=== PATIENT | female | born 1945 | race Caucasian/White ===

== ENCOUNTER → 2016-09-13 | Outpatient (CLI) | payer MEDICARE, BC | LOC: WI 10:10 | PROVIDERS: ATTEND Surgery | DX: Z12.31 Encounter for screening mammogram for malignant neoplasm of breast (principal); M81.8 Other osteoporosis without current pathological fracture | CPT/HCPCS: 77063; 77080; G0202; 77067 ==

== ENCOUNTER → 2017-04-27 | Outpatient (CLI) | payer MEDICARE, BC ==
[~2017-04-27] MED LIST: REGADENOSON INJ 0.4 MG/5 ML DISP.SYRIN IV ONE
--- NOTE | 2017-04-28 18:03 | DRAGON STRESS TEST REPORT ---
Intravenous Lexiscan Cardiolite stress test using single photon emmision computerized tomography. Date of procedure: 04/27/2017. Ordering Provider: Dr. Oleg Todd. Patient's status: Out Patient. Indication: Dyspnea. Coronary risk factors: Age, hypertension, dyslipidemia, and family history of coronary artery disease. Resting EKG: Sinus Rhythm. Within Normal Limits. Stress EKG: There was more than [address] segment depression in the inferolateral leads consistent with Lexiscan induced myocardial ischemia. This normalized after a few minutes in recovery. The patient in no chest pain or discomfort, and there were no arrhythmias seen. . Reason for termination: Protocol. Conclusions: Ischemic EKG changes with IV Lexiscan and normal hemodynamic response to IV Lexiscan. Nuclear data: At rest the patient was given 10.31 millicuries of technetium 99m sestamibi injected intravenously. As per protocol rest non gated SPECT images were obtained. Subsequently the patient was given intravenous Lexiscan at a dose of 0.4 mg in 5 mL intravenously, followed by flush with normal saline. Subsequently the stress dose of 31.0 millicuries of technetium 99m sestamibi was injected intravenously. As per protocol stress gated images were obtained. Nuclear interpretation: Review of images showed that all segments of the myocardium had normal perfusion at rest, and normal perfusion post stress with IV Lexiscan. All segments of the myocardium had normal motion, contraction, and thickening by gated study. T. I D. ratio was normal at 0.90. Computer read rest, and stress left ventricular ejection fraction were 60 %, and 70 %, respectively. Conclusion: 1. There is no scintigraphic evidence of Lexiscan induced myocardial ischemia. 2. There is no scintigraphic evidence of myocardial infarction/scar. 3. There is Lexiscan induced EKG evidence of ischemia. Hence this puts the patient at a higher cardiac event percentage compared to persons with no Lexiscan induced EKG changes of ischemia, and a normal perfusion scan. Recommendations: 1. Correlate clinically. Would recommend close cardiology follow-up of this patient, and with the slightest suspicion would recommend cardiac catheterization to be absolutely sure that the patient does not have any segment significant coronary artery disease. 2. Aggressive risk factor modification, and treating the underlying co- morbidities. FLASH
== END ==
LOC: RAD 07:32
PROVIDERS: ATTEND Internal Medicine Cardiovascular Disease
DX: R06.02 Shortness of breath (principal); I10 Essential (primary) hypertension; E78.5 Hyperlipidemia, unspecified; Z82.49 Family history of ischemic heart disease and other diseases of the circulatory system
CPT/HCPCS: 93017; 78452; A9500; J2785; Q9969

== ENCOUNTER 2017-05-29 15:25 | Inpatient (IN) | payer MEDICARE, BC ==
--- NOTE | 2017-05-29 16:17 | ER Document Report ---
ED Extremity Problem, Upper - General Chief Complaint: Elbow Injury Stated Complaint: FALL/ELBOW INJURY/LACERATION Time Seen by Provider: 05/29/17 16:03 Mode of Arrival: Ambulatory Information source: Patient Notes: 72-year-old female presents to ED for complaint of injury to her right elbow and shoulder. She states she fell before arrival. She states she tripped over the asphalt. She states she always bleeds bad when she falls cuts her self. She has a very large hematoma to her right elbow pain with range of motion to her right shoulder. She does have a history of a reverse shoulder replacement on the right also rotator cuff surgery on the right and left. TRAVEL OUTSIDE OF THE [place] IN LAST 30 DAYS: No - HPI Patient complains to provider of: Injury, Pain, Swelling, Right, Elbow, Shoulder Onset: Just prior to arrival Recent injury: Yes Where: Outdoors Quality of pain: Sharp, Throbbing Severity of pain: Moderate Pain Level: 4 Context: Fall - Related Data Allergies/Adverse Reactions: Iodinated Contrast- Oral and IV Dye Allergy (Mild, Verified 05/29/17 15:28) Hives acetaminophen [From Percocet] Allergy (Verified 05/29/17 15:28) celecoxib [From Celebrex] Allergy (Verified 05/29/17 15:28) oxycodone HCl [From Percocet] Allergy (Verified 05/29/17 15:28) pravastatin [Pravastatin] Allergy (Verified 05/29/17 15:28) Past Medical History - General Information source: Patient - Social History Smoking Status: Never Smoker Cigarette use (# per day): No Chew tobacco use (# tins/day): No Smoking Education Provided: No Frequency of alcohol use: None Drug Abuse: None Lives with: Family Family History: Arthritis, CAD, COPD, CVA, Hyperlipidemia, Hypertension, Malignancy. denies: DM, Thyroid Disfunction Patient has suicidal ideation: No Patient has homicidal ideation: No - Past Medical History Cardiac Medical History: Reports: Hx Congestive Heart Failure, Hx Heart Attack - 02/22, Hx Hypertension Pulmonary Medical History: Reports: Hx Asthma - uses inhalers EENT Medical History: Reports: None Endocrine Medical History: Reports: Hx Hypothyroidism Renal/ Medical History: Reports: None Malignancy Medical History: Reports: None GI Medical History: Reports: None Musculoskeltal Medical History: Reports Hx Arthritis - hands, Reports Hx Musculoskeletal Deformity, Reports Hx Musculoskeletal Trauma Skin Medical History: Reports None Psychiatric Medical History: Reports: None Traumatic Medical History: Reports: Hx Fractures - Right elbow Infectious Medical History: Reports: None Past Surgical History: Reports: Hx Breast Surgery - Lumpectomy, Hx Genitourinary Surgery - Prolapsed bladder repair with lysis of adhesions in the pelvis at [place]., Hx Hysterectomy, Hx Orthopedic Surgery - Bilateral shoulder rotator cuff surgery, righ shoulder replacement surgery. - Immunizations Immunizations up to date: Yes Hx Diphtheria, Pertussis, Tetanus Vaccination: Yes - 05/29/17 Hx Pneumococcal Vaccination: 02/13/11 Review of Systems - Review of Systems Constitutional: No symptoms reported EENT: No symptoms reported Cardiovascular: No symptoms reported Respiratory: No symptoms reported Gastrointestinal: No symptoms reported Genitourinary: No symptoms reported Female Genitourinary: No symptoms reported Musculoskeletal: Joint pain - Right elbow and shoulder, Joint swelling - Right elbow and shoulder, Muscle pain, Muscle stiffness Skin: Other - Very large hematoma with skin tears to the right elbow Hematologic/Lymphatic: No symptoms reported Neurological/Psychological: No symptoms reported -: Yes All other systems reviewed and negative Physical Exam - Vital signs Vitals: Temp Pulse Resp BP Pulse Ox 98.4 F 62 16 139/69 H 100 05/29/17 15:30 05/29/17 15:30 05/29/17 15:30 05/29/17 15:30 05/29/17 15:30 Interpretation: Normal - General General appearance: Appears well, Alert - HEENT Head: Normocephalic, Atraumatic Eyes: Normal Pupils: PERRL - Respiratory Respiratory status: No respiratory distress Chest status: Nontender Breath sounds: Normal Chest palpation: Normal - Cardiovascular Rhythm: Regular Heart sounds: Normal auscultation Murmur: No - Abdominal Inspection: Normal Distension: No distension Bowel sounds: Normal Tenderness: Nontender Organomegaly: No organomegaly - Back Back: Normal, Nontender - Extremities General upper extremity: Normal temperature General lower extremity: Normal inspection, Nontender, Normal color, Normal ROM , Normal temperature, Normal weight bearing. No: Heron's sign Shoulder: Tender, Ecchymosis, Limited ROM - due to pain Arm: Ecchymosis Elbow: Tender, Ecchymosis, Joint effusion, Laceration, Limited ROM Forearm: Tender, Ecchymosis. No: Abrasion, Deformity, Instability, Laceration Wrist: Tender, Limited ROM - arthritis. No: Abrasion, Axial load of thumb pain , Deformity, Dislocation, Ecchymosis, Instability, Laceration, Navicular tenderness, Other Hand: Tender, No evidence of human bite, No evidence of FB. No: Abrasion, Deformity, Dislocation, Ecchymosis, Instability, Laceration, Nail injury, Swelling - Neurological Neuro grossly intact: Yes Cognition: Normal Orientation: AAOx4 Faye Coma Scale Eye Opening: Spontaneous Faye Coma Scale Verbal: Oriented Faye Coma Scale Motor: Obeys Commands Faye Coma Scale Total: 15 Speech: Normal Motor strength normal: LUE, RUE, LLE, RLE Sensory: Normal - Psychological Associated symptoms: Normal affect, Normal mood - Skin Skin Temperature: Warm Skin Moisture: Dry Skin Color: Normal Course - Re-evaluation Re-evalutation: 05/29/17 16:[address] Calles for her elbow and shoulder injury. She has an open olecranon fracture with a large hematoma to the elbow. Dr. Calles looked at the x-rays for the elbow and the shoulder. He stated the elbow wounds need to be irrigated a wet-to-dry dressing applied, she needs Ancef every 8 hours, she needs appropriate labs to for her to go to surgery in the morning, and she needs to be admitted to the hospitalist. - Vital Signs Vital signs: Temp Pulse Resp BP Pulse Ox 97.9 F 68 18 138/75 H 94 05/29/17 18:22 05/29/17 18:22 05/29/17 18:22 05/29/17 18:22 05/29/17 18:22 - Laboratory Result Diagrams: 05/29/17 17:30 05/29/17 17:30 - Diagnostic Test Radiology reviewed: Image reviewed, Reports reviewed Discharge - Discharge Clinical Impression: Open displaced fracture of olecranon process of left ulna without intraarticular extension Nondisplaced fracture of head of right radius Qualifiers: Encounter type: initial encounter Fracture type: open Open fracture type: open type I or II Qualified Code(s): S52.124B - Nondisplaced fracture of head of right radius, initial encounter for open fracture type I or II Right shoulder injury Qualifiers: Encounter type: initial encounter Qualified Code(s): S49.91XA - Unspecified injury of right shoulder and upper arm, initial encounter Disposition: ADMITTED INPATIENT Admitting Provider: Alejandra philippe
[2017-05-29] MEDS ORDERED: DIPH/PERTUSS(ACELL)/TETANUS VAC/PF 0.5 ML SYR (>=10YO) IM ONE (16:20)
--- NOTE | 2017-05-29 16:42 | RADIOLOGY REPORT (SQ) ---
EXAM DESCRIPTION: ELBOW RIGHT OVER 2 VIEWS COMPLETED DATE/TIME: 05/29/2017 4:32 pm REASON FOR STUDY: fall pain and injury COMPARISON: None. NUMBER OF VIEWS: Four views. TECHNIQUE: AP, lateral, and both oblique radiographic images acquired of the right elbow. LIMITATIONS: None. FINDINGS: MINERALIZATION: Normal. BONES: Transverse fracture through the olecranon with posterosuperior displacement of the proximal fr agment. Radial head fracture. JOINT: Joint effusion. SOFT TISSUES: There is gas in the posterior soft tissues. OTHER: No other significant finding. IMPRESSION: Displaced olecranon fracture. Nondisplaced radial head fracture. Joint effusion. Presumed posttraumatic gas in the soft tissues posteriorly. TECHNICAL DOCUMENTATION: JOB ID: [id number]- All Rights Reserved
--- NOTE | 2017-05-29 16:43 | RADIOLOGY REPORT (SQ) ---
EXAM DESCRIPTION: SHOULDER RIGHT 2 OR MORE VIEWS COMPLETED DATE/TIME: 05/29/2017 4:32 pm REASON FOR STUDY: fall pain and injury COMPARISON: None. NUMBER OF VIEWS: Three views. TECHNIQUE: Internal rotation, external rotation, and Y view images acquired of the right shoulder. LIMITATIONS: None. FINDINGS: MINERALIZATION: Normal. BONES: No acute fracture. Shoulder replacement. JOINTS: No dislocation. VISUALIZED LUNGS AND RIBS: No pneumothorax. No rib fracture. SOFT TISSUES: No radiopaque foreign body. OTHER: No other significant finding. IMPRESSION: No acute fracture. TECHNICAL DOCUMENTATION: JOB ID: [id number] [employer]- All Rights Reserved
[2017-05-29] MEDS ORDERED: CEFAZOLIN 1 GM/D5W RTU 1 GM/50 ML RTUPB IV ONE (16:55)
[2017-05-29] MEDS ORDERED: ONDANSETRON HCL INJ/PF 4 MG/2 ML SDV IV ONE (17:36)
[2017-05-29] MEDS ORDERED: MORPHINE SULFATE 10 MG/ML INJ IV ONE (17:36)
[2017-05-29] MEDS ORDERED: POTASSI CL 20 MEQ/D5LR 1L 20 MEQ/1,000 ML RTUINJ IV PRN ×2 (17:56→18:12)
[2017-05-29] MEDS ORDERED: ACETAMINOPHEN 325 MG TABLET PO PRN (17:56)
[2017-05-29 18:19] LABS: PROTHROMBIN TIME 12.8 SEC (11.4-15.4)
[2017-05-29 18:20] LABS: PARTIAL THROMBOPLASTIN TIME 29.2 SEC (23.5-35.8)
[2017-05-29 18:21] LABS: ABSOLUTE BASOPHILS # (AUTO) 0.1 10^3/uL (0.0-0.2); ABSOLUTE EOSINOPHILS # (AUTO) 0.1 10^3/uL (0.0-0.6); ABSOLUTE LYMPHOCYTES (AUTO) 2.2 10^3/uL (0.5-4.7); ABSOLUTE MONOCYTES (AUTO) 0.8 10^3/uL (0.1-1.4); ABSOLUTE NEUT (AUTO) 7.5 10^3/uL (1.7-8.2); BASOPHILS % (AUTO) 0.7 % (0-2); EOSINOPHILS % (AUTO) 1.1 % (0-6); HEMATOCRIT 43.6 % (36.0-47.0); HEMOGLOBIN 14.6 g/dL (12.0-15.5); LYMPHOCYTES % (AUTO) 20.5 % (13-45); MEAN CORPUSCULAR HEMOGLOBIN 29.5 pg (27.0-33.4); MEAN CORPUSCULAR HGB CONC 33.5 g/dL (32.0-36.0); MEAN CORPUSCULAR VOLUME 88 fl (80-97); MONOCYTES % (AUTO) 7.7 % (3-13); PLATELET COUNT 203 10^3/uL (150-450); RED BLOOD COUNT 4.95 10^6/uL (3.72-5.28); RED CELL DISTRIBUTION WIDTH 13.9 % (11.5-14.0); TOTAL CELLS COUNTED % (AUTO) 100 %; WHITE BLOOD COUNT 10.8 10^3/uL (4.0-10.5)
[2017-05-29 18:31] LABS: APPEARANCE,URINE CLEAR; BILIRUBIN,URINE NEGATIVE (NEGATIVE); COLOR,URINE STRAW; GLUCOSE, URINE NEGATIVE (NEGATIVE); KETONES,URINE NEGATIVE (NEGATIVE); LEUKOCYTE ESTERASE,URINE NEGATIVE (NEGATIVE); NITRITE,URINE NEGATIVE (NEGATIVE); PROTEIN,URINE NEGATIVE (NEGATIVE); URINE SPECIFIC GRAVITY 1.003; UROBILINOGEN,URINE NEGATIVE mg/dL (<2.0)
[2017-05-29 18:35] LABS: ALANINE AMINOTRANSFERASE 38 U/L (9-52); ALKALINE PHOSPHATASE 76 U/L (38-126); ANION GAP 10 (5-19); ASPARTATE AMINO TRANSFERASE 37 U/L (14-36); BILIRUBIN,DIRECT 0.3 mg/dL (0.0-0.4); BILIRUBIN,TOTAL 0.4 mg/dL (0.2-1.3); BLOOD UREA NITROGEN 21 mg/dL (7-20); CALCIUM 9.8 mg/dL (8.4-10.2); CARBON DIOXIDE 27 mmol/L (22-30); CHLORIDE 106 mmol/L (98-107); GLUCOSE 77 mg/dL (75-110); POTASSIUM 4.3 mmol/L (3.6-5.0); SODIUM 143.3 mmol/L (137-145); TOTAL PROTEIN 6.7 g/dL (6.3-8.2)
[2017-05-29] MEDS ORDERED: (PENDING PHARMACY ID) (Alprazolam [Alprazolam Odt] 1 TAB) PO PRN (18:37)
[2017-05-29] MEDS ORDERED: ALBUTEROL SULFATE HFA (90 MCG/PUFF) 200 PUFF/8.5 GM MDI IH PRN (18:37)
--- NOTE | 2017-05-29 18:45 | PDOC H&P ---
History of Present Illness Admission Date/PCP: 05/29/17 17:16 ELIZABET FIGUEROA MD Patient complains of: Fell and broke right elbow. History of Present Illness: GOPAL CORNELIUS is a 72 year old female presents to the emergency room complaining of following after visiting her son. Patient states that she tripped and fell on her right side. Patient states that she experiences severe pain and significant bleeding. Patient drove back to [facility] to receive medical care here at the hospital. Patient reports that she does have history of osteoporosis. Patient states that her pain is approximately 7 out of 10. Nurse practitioner was at bedside planning to give patient 1 mg of morphine. Patient denies chest pain, shortness of breath, nausea, and vomiting. Past Medical History Cardiac Medical History: Reports: Congestive Heart Failure, Myocardial Infarction - 02/22, Hyperlipidema, Hypertension Denies: Coronary Artery Disease - Cardiomyopathy Pulmonary Medical History: Reports: Asthma - uses inhalers Denies: Bronchitis, Chronic Obstructive Pulmonary Disease (COPD), Pneumonia EENT Medical History: Reports: None Neurological Medical History: Denies: Seizures Endocrine Medical History: Reports: Hypothyroidism Renal/ Medical History: Reports: None Malignancy Medical History: Reports: None GI Medical History: Reports: None Denies: Hepatitis, Hiatal Hernia Musculoskeltal Medical History: Reports: Arthritis - hands Skin Medical History: Reports: None Psychiatric Medical History: Reports: None Hematology: Denies: Anemia, Sickle Cell Disease Infectious Medical History: Reports: None Past Surgical History Past Surgical History: Reports: Hysterectomy, Orthopedic Surgery - Bilateral shoulder rotator cuff surgery, righ shoulder replacement surgery. Denies: Amputation, Mastectomy, Pacemaker Social History Lives with: Family Smoking Status: Never Smoker - Advance Directive Resuscitation Status: Full Code Family History Family History: Arthritis, CAD, COPD, CVA, Hyperlipidemia, Hypertension, Malignancy. denies: DM, Thyroid Disfunction Parental Family History Reviewed: Yes Children Family History Reviewed: Yes Sibling(s) Family History Reviewed.: Yes Medication/Allergy Home Medications: Aspirin [Ecotrin 81 mg EC Tablet] 81 mg PO DAILY 07/23/11 Levothyroxine Sodium [Synthroid 25 Mcg Tablet] 25 mcg PO DAILY 07/23/11 Multivitamin [Multivitamins] 1 each PO DAILY 07/23/11 Omeprazole [Prilosec] 20 mg PO DAILY 07/23/11 Spironolactone [Aldactone] 25 mg PO DAILY 07/23/11 Albuterol Sulfate [Proair Hfa Inhalation Aerosol 8.5 gm Mdi] 1 puff IH Q4 PRN Atorvastatin Calcium [Lipitor] 20 mg PO HSP PRN 08/19/15 Beclomethasone Dipropionate [Qvar] 1 - 2 inh IH BID PRN 08/19/15 Diltiazem HCl [Diltiazem 12Hr ER] 120 mg PO DAILY 08/19/15 Ibandronate Sodium [Boniva] 150 mg PO ASDIR PRN 08/19/15 Meclizine HCl [Antivert 25 mg Tablet] 25 mg PO DAILY PRN 08/19/15 Alprazolam [Alprazolam Odt] 1 tab PO ASDIR PRN 12/18/15 Calcium/D3/Mag Ox/Water Safety Instructor/Ramiro/Zn [Caltrate+D3 Plus Mineral Minis] 1 each PO BID 08/29 Montelukast Sodium [Singulair 10 mg Tablet] 10 mg PO QHS 12/18/15 Vitamin B Complex [Vitamin B Complex-100] 1 each PO DAILY 12/18/15 Allergies/Adverse Reactions: Iodinated Contrast- Oral and IV Dye Allergy (Mild, Verified 05/29/17 15:28) Hives acetaminophen [From Percocet] Allergy (Verified 05/29/17 15:28) celecoxib [From Celebrex] Allergy (Verified 05/29/17 15:28) oxycodone HCl [From Percocet] Allergy (Verified 05/29/17 15:28) pravastatin [Pravastatin] Allergy (Verified 05/29/17 15:28) Review of Systems Constitutional: ABSENT: chills, fever(s), headache(s), weight gain, weight loss Eyes: ABSENT: visual disturbances Ears: ABSENT: hearing changes Cardiovascular: ABSENT: chest pain, dyspnea on exertion, edema, orthropnea, palpitations Respiratory: ABSENT: cough, hemoptysis Gastrointestinal: ABSENT: abdominal pain, constipation, diarrhea, hematemesis, hematochezia, nausea, vomiting Genitourinary: ABSENT: dysuria, hematuria Musculoskeletal: PRESENT: other - Right arm pain Integumentary: PRESENT: other - Right arm wound Neurological: ABSENT: abnormal gait, abnormal speech, confusion, dizziness, focal weakness, syncope Psychiatric: ABSENT: anxiety, depression, homidical ideation, suicidal ideation Endocrine: ABSENT: cold intolerance, heat intolerance, polydipsia, polyuria Hematologic/Lymphatic: ABSENT: easy bleeding, easy bruising Physical Exam Vital Signs: Temp Pulse Resp BP Pulse Ox 98.4 F 62 16 139/69 H 100 05/29/17 15:30 05/29/17 15:30 05/29/17 15:30 05/29/17 15:30 05/29/17 15:30 General appearance: PRESENT: mild distress, thin Head exam: PRESENT: atraumatic, normocephalic Eye exam: PRESENT: conjunctiva pink, EOMI. ABSENT: scleral icterus Ear exam: PRESENT: normal external ear exam Mouth exam: PRESENT: moist, tongue midline Neck exam: ABSENT: carotid bruit, JVD, lymphadenopathy, thyromegaly Respiratory exam: PRESENT: clear to auscultation michael. ABSENT: rales, rhonchi, wheezes Cardiovascular exam: PRESENT: other - Irregular rhythm, no carotid bruits, no lower extremity edema Pulses: PRESENT: normal dorsalis pedis pul Vascular exam: PRESENT: normal capillary refill GI/Abdominal exam: PRESENT: normal bowel sounds, soft. ABSENT: distended, guarding, mass, organolmegaly, rebound, tenderness Rectal exam: PRESENT: deferred Extremities exam: PRESENT: other - Right arm with dressing in place, lower extremities full range of motion bilaterally strength 5 out of 5 in left upper extremity with 5 out of 5 strength Musculoskeletal exam: PRESENT: other - +Left upper ext 5/5, +bilateral lower ext strength 5/5 Neurological exam: PRESENT: alert, awake, oriented to person, oriented to place , oriented to time, oriented to situation, CN II-XII grossly intact. ABSENT: motor sensory deficit Psychiatric exam: PRESENT: appropriate affect, normal mood. ABSENT: homicidal ideation, suicidal ideation Skin exam: PRESENT: dry, intact, warm. ABSENT: cyanosis, rash Results Impressions: Elbow X-Ray 05/29/17 16:07 IMPRESSION: Displaced olecranon fracture. Nondisplaced radial head fracture. Joint effusion. Presumed posttraumatic gas in the soft tissues posteriorly. Shoulder X-Ray 05/29/17 16:07 IMPRESSION: No acute fracture. Assessment & Plan - Diagnosis (1) Nondisplaced fracture of head of right radius Qualifiers: Encounter type: initial encounter Fracture type: open Open fracture type : open type I or II Qualified Code(s): S52.124B - Nondisplaced fracture of head of right radius, initial encounter for open fracture type I or II Is this a current diagnosis for this admission?: Yes Plan: In setting of osteoporosis: Patient will be seen by Dr. Calles. (2) Vertigo Is this a current diagnosis for this admission?: Yes Plan: Meclizine as needed (3) GERD (gastroesophageal reflux disease) Is this a current diagnosis for this admission?: Yes Plan: We will continue omeprazole (4) Allergic rhinitis Is this a current diagnosis for this admission?: Yes Plan: We will continue Singulair (5) Hyperlipidemia Is this a current diagnosis for this admission?: Yes Plan: Continue statin (6) Asthma Is this a current diagnosis for this admission?: Yes Plan: We will continue Qvar and write for as needed breathing treatments. (7) Osteoporosis Is this a current diagnosis for this admission?: Yes Plan: She reports that she does not take medicine for osteoporosis. Will need to verify this with pharmacy. (8) Right shoulder injury Qualifiers: Encounter type: initial encounter Qualified Code(s): S49.91XA - Unspecified injury of right shoulder and upper arm, initial encounter Is this a current diagnosis for this admission?: Yes Plan: Secondary to fall: Supportive care. Morphine has been written for 1 mg IV every 4 hours as needed for pain. (9) Fall Is this a current diagnosis for this admission?: Yes Plan: We will have patient work with PT OT (10) Abnormal stress test Is this a current diagnosis for this admission?: Yes Plan: Patient had a nuclear medicine stress test April 2017 which demonstrated induced ischemia. Will have cardiology follow patient. Will check troponins. (11) DVT prophylaxis Is this a current diagnosis for this admission?: Yes Plan: SCDs - Time Time Spent: 30 to 50 Minutes - We will have cardiology follow patient. She had a stress test April 2017 that demonstrated induced ischemia. Cardiology recommends medical management. The patient required surgery will have cardiology follow patient throughout hospital stay in case patient develops any issues.
--- NOTE | 2017-05-29 19:40 | PDOC CONSULTATION ---
Consultation Consult Date: 05/29/17 Attending physician:: MIGUEL LOVETT Consult reason:: Preop cardiovascular evaluation History of Present Illness Admission Date/PCP: 05/29/17 17:16 ELIZABET FIGUEROA MD Patient complains of: Elbow fracture History of Present Illness: GOPAL CORNELIUS is a 72 year old female presents to the emergency room complaining of following after visiting her son. Patient states that she tripped and fell on her right side. Patient states that she experiences severe pain and significant bleeding. Patient drove back to [facility] to receive medical care here at the hospital. Patient reports that she does have history of osteoporosis. Patient states that her pain is approximately 7 out of 10. Nurse practitioner was at bedside planning to give patient 1 mg of morphine. Patient denies chest pain, shortness of breath, nausea, and vomiting. This history was reviewed and confirmed. Patient claimed that she had recent cardiac evaluations by Dr. Todd. A follow-up is pending with him but apparently no significant findings are noted otherwise they claim that Dr. Todd would have called them. Patient actually denied any history of CHF or prior myocardial infarction although it was mentioned in the past medical history. I did find a recent stress test report which showed no perfusion abnormality but some EKG changes with Lexiscan. Patient however doing clinically well. Patient claims the only problem she has been having is with some ectopics and irregular heartbeats. Past Medical History Cardiac Medical History: Reports: Congestive Heart Failure, Myocardial Infarction - 02/22, Hyperlipidema, Hypertension Denies: Coronary Artery Disease - Cardiomyopathy Pulmonary Medical History: Reports: Asthma - uses inhalers Denies: Bronchitis, Chronic Obstructive Pulmonary Disease (COPD), Pneumonia EENT Medical History: Reports: None Neurological Medical History: Denies: Seizures Endocrine Medical History: Reports: Hypothyroidism Renal/ Medical History: Reports: None Malignancy Medical History: Reports: None GI Medical History: Reports: None Denies: Hepatitis, Hiatal Hernia Musculoskeltal Medical History: Reports: Arthritis - hands Skin Medical History: Reports: None Psychiatric Medical History: Reports: None Hematology: Denies: Anemia, Sickle Cell Disease Infectious Medical History: Reports: None Past Surgical History Past Surgical History: Reports: Hysterectomy, Orthopedic Surgery - Bilateral shoulder rotator cuff surgery, righ shoulder replacement surgery. Denies: Amputation, Mastectomy, Pacemaker Social History Information Source: Patient Lives with: Family Smoking Status: Never Smoker - Advance Directive Resuscitation Status: Full Code Family History Family History: Arthritis, CAD, COPD, CVA, Hyperlipidemia, Hypertension, Malignancy. denies: DM, Thyroid Disfunction Parental Family History Reviewed: Yes Children Family History Reviewed: Yes Sibling(s) Family History Reviewed.: Yes Medication/Allergy Home Medications: Atorvastatin Calcium [Lipitor 20 mg Tablet] 20 mg PO QHS 05/30/17 Diltiazem HCl [Diltiazem ER] 240 mg PO DAILY 05/30/17 Levothyroxine Sodium [Synthroid 0.025 mg Tablet] 25 mcg PO Q6AM 05/30/17 Meloxicam [Mobic] 15 mg PO DAILY 05/30/17 Montelukast Sodium [Singulair 10 mg Tablet] 10 mg PO QHS 05/30/17 Multivitamin [Tab-A-Werner (Multiple Vitamin) Tablet] 1 tab PO DAILY 05/30/17 Qvar 40 Mcg Inhaler 1 puff IH Q12 05/30/17 Spironolactone [Aldactone 25 mg Tablet] 12.5 mg PO DAILY 05/30/17 Allergies/Adverse Reactions: Iodinated Contrast- Oral and IV Dye Allergy (Mild, Verified 05/29/17 15:28) Hives acetaminophen [From Percocet] Allergy (Verified 05/29/17 15:28) celecoxib [From Celebrex] Allergy (Verified 05/29/17 15:28) oxycodone HCl [From Percocet] Allergy (Verified 05/29/17 15:28) pravastatin [Pravastatin] Allergy (Verified 05/29/17 15:28) Review of Systems All systems: reviewed and no additional remarkable complaints except as stated Review of Systems: Please see history of present illness and past medical history as wall. Constitutional: No fever or chills reported. Head : No recent chronic headaches, recent head injury. Eyes: No recent eye pain, diplopia, redness, discharge, acute visual changes. Ears: No recent chronic ear pain, acute hearing loss, ear discharge. Oral cavity: No recent ulcerations, bleeding, oral cavity discomfort. Neck: No recent acute neck pain reported. Hematologic: No recent easy bruising or bleeding or hematologic malignancy reported. Lymphatic: No recent lymphatic malignancy, chronic lymphadenopathy reported yet Cardiovascular system review: See history of present illness. Respiratory system review: No recent chronic cough, hemoptysis, blood clots in the lungs reported. Mild Shortness of breath on exertion. No syncope reported Gastrointestinal system review: Negative for any recent acute or chronic abdominal pain, hematemesis, melena, recent change in bowel habits. Genitourinary system review: No recent acute or chronic hematuria, flank pain, UTI etc. reported. Skin system review: Negative for any recent abnormal bruising, no rash, no pruritus reported. Neurologic: No prior history of strokes, mini strokes, seizure disorder. Psychologic: No history of major psychosis or major depression reported. Musculoskeletal: Minor aches and pains reported. No acute joint swelling reported. Elbow fracture noted Endocrine: No recent polyuria, polydipsia, recent heat or cold intolerance. Physical Exam Vital Signs: Temp Pulse Resp BP Pulse Ox 97.9 F 68 18 138/75 H 94 05/29/17 18:22 18 18:22 05/29/17 18:22 05/29/17 18:22 05/29/17 18:22 Exam: GENERAL: well-nourished and in no acute distress. Alert and oriented x3. Patient is thin built and small HEAD: Atraumatic, normocephalic. EYES: Pupils equal round and reactive to light, extraocular movements intact, sclera anicteric, conjunctiva are normal. ENT: TMs normal, nares patent, oropharynx clear without exudates. Moist mucous membranes. No oral ulcerations or bleeding gums noted NECK: supple without lymphadenopathy. Trachea is central. No cervical or axillary lymphadenopathy noted. Carotids are 2+, JVD WNL LUNGS: Respiration seems nonlabored, no significant accessory muscle action noted. Breath sounds clear to auscultation bilaterally and equal noted. No wheezes rales or rhonchi noted. No significant dullness noted on percussion. CHEST: Palpation of the chest wall shows no significant chest wall tenderness. No other significant abnormalities noted. HEART: [place] [employer], No PSH, 1/6 KEV aortic area, 1/6 reyes systolic murmur mitral area, no rubs, no gallops. ABDOMEN: Soft, no significant tenderness appreciated, normoactive bowel sounds. No guarding, no rebound. No rigidity noted . No masses appreciated. EXTREMITIES: Pedal pulses are 1-2+, no calf tenderness noted. No clubbing or cyanosis. Negative pedal edema noted NEUROLOGICAL: Focused neurological exam showed no significant neurologic deficit. Normal speech, no focal weakness appreciated. PSYCH: Normal mood, normal affect. Judgment and insight within normal limits. SKIN: No significant ecchymosis, rash, ulcerations or signs of pruritus noted. Right elbow fracture findings noted. MUSCULOSKELETAL EXAM: No significant joint swelling noted. Results Laboratory Results: 05/29/17 17:30 05/29/17 17:30 05/29/17 05/29/17 05/29/17 17:30 17:30 18:10 WBC 10.8 H RBC 4.95 Hgb 14.6 Hct 43.6 MCV 88 MCH 29.5 MCHC 33.5 RDW 13.9 Plt Count 203 Seg Neutrophils % 70.0 Lymphocytes % 20.5 Monocytes % 7.7 Eosinophils % 1.1 Basophils % 0.7 Absolute Neutrophils 7.5 Absolute Lymphocytes 2.2 Absolute Monocytes 0.8 Absolute Eosinophils 0.1 Absolute Basophils 0.1 Sodium 143.3 Potassium 4.3 Chloride 106 Carbon Dioxide 27 Anion Gap 10 BUN 21 H Creatinine 0.71 Est GFR ( Amer) > 60 Est GFR (Non-Af Amer) > 60 Glucose 77 Calcium 9.8 Total Bilirubin 0.4 AST 37 H ALT 38 Alkaline Phosphatase 76 Total Protein 6.7 Albumin 4.0 Urine Color STRAW Urine Appearance CLEAR Urine pH 8.0 Ur Specific [place] 1.003 Urine Protein NEGATIVE Urine Glucose (UA) NEGATIVE Urine Ketones NEGATIVE Urine Blood NEGATIVE Urine Nitrite NEGATIVE Ur Leukocyte Esterase NEGATIVE Urine WBC (Auto) 1 Urine RBC (Auto) 0 EKG Comments: Shows sinus rhythm, no acute ST-T wave changes noted. Minor nonspecific ST segment changes noted laterally but relatively unchanged from before. Impressions: Elbow X-Ray 05/29/17 16:07 IMPRESSION: Displaced olecranon fracture. Nondisplaced radial head fracture. Joint effusion. Presumed posttraumatic gas in the soft tissues posteriorly. Shoulder X-Ray 05/29/17 16:07 IMPRESSION: No acute fracture. Assessment & Plan - Diagnosis (1) Preoperative cardiovascular examination Is this a current diagnosis for this admission?: Yes (2) Asthma Qualifiers: Asthma severity: unspecified severity Asthma persistence: unspecified Is this a current diagnosis for this admission?: Yes (3) Fall Qualifiers: Encounter type: initial encounter Qualified Code(s): W19.XXXA - Unspecified fall, initial encounter Is this a current diagnosis for this admission?: Yes (4) GERD (gastroesophageal reflux disease) Is this a current diagnosis for this admission?: Yes (5) Hyperlipidemia Is this a current diagnosis for this admission?: Yes (6) Ventricular ectopic beats Is this a current diagnosis for this admission?: Yes - Notes Notes: Patient presents with a fall resulting in right elbow fracture. Patient currently asymptomatic from any cardiac related symptoms such as chest pain or shortness of breath. Patient is in sinus rhythm. Recent stress test showed normal perfusion but minor some EKG changes. Since orthopedic surgery is considered minor surgery, patient is cleared for surgery. Will place patient on small dose of beta-magnolia in view of history of ectopics. Continue with statins as statins has been shown to prevent perioperative myocardial infarction rate. - Time Time Spent: 30 to 50 Minutes - CODE STATUS was discussed, patient remains full code. Surrogate decision-maker patient's . Multiple medical problems were addressed. More than 50% of the time spent coordinating care, discussing management plans with involved caregivers. Management plans discussed with involved personnels. Medical decision making was of moderate to high complexity , patient's has multiple comorbidities. Medications reviewed and adjusted accordingly: Yes
--- NOTE | 2017-05-29 19:53 | RADIOLOGY REPORT (SQ) ---
EXAM DESCRIPTION: CHEST PA/LAT COMPLETED DATE/TIME: 05/29/2017 7:40 pm REASON FOR STUDY: pre op COMPARISON: 10/18/2015. EXAM PARAMETERS: NUMBER OF VIEWS: two views TECHNIQUE: Digital Frontal and Lateral radiographic views of the chest acquired. RADIATION DOSE: NA LIMITATIONS: none FINDINGS: LUNGS AND PLEURA: No opacities, masses or pneumothorax. No pleural effusion. MEDIASTINUM AND HILAR STRUCTURES: No masses or contour abnormalities. HEART AND VASCULAR STRUCTURES: Heart normal size. No evidence for failure. BONES: No acute findings. HARDWARE: Right shoulder prosthesis. OTHER: No other significant finding. IMPRESSION: NO SIGNIFICANT RADIOGRAPHIC FINDING IN THE CHEST. TECHNICAL DOCUMENTATION: JOB ID: [id number] [employer]- All Rights Reserved
--- NOTE | 2017-05-29 22:10 | EKG REPORT ---
SEVERITY:- OTHERWISE NORMAL ECG - SINUS RHYTHM ATRIAL PREMATURE COMPLEX MINIMAL ST DEPRESSION, LATERAL LEADS : Confirmed by: Mendez Oconnell MD 29-May-2017 22:10:14
[2017-05-29] MEDS ORDERED: POTASSI CL 20 MEQ/D5-1/2NS 1L 1,000 ML IV PRN (22:20)
[2017-05-29] MEDS: MORPHINE SULFATE 10 MG/ML INJ IV PRN (22:21)
[2017-05-29] MEDS: MONTELUKAST SODIUM 10 MG TABLET PO SCH (22:27)
[2017-05-30] MEDS: DEXTROSE 5%-1/2 NORMAL SALINE 1,000 ML IV PRN ×2 (00:36→20:54)
[2017-05-30] MEDS: CEFAZOLIN 2 GM/D5W RTU 2 GM/50 ML RTUPB IV SCH ×4 (00:41→20:28)
[2017-05-30] MEDS: LANSOPRAZOLE 15 MG TAB.RAP.DR PO SCH (05:50)
[2017-05-30] MEDS: LEVOTHYROXINE SODIUM 0.025 MG TABLET PO SCH (05:51)
[2017-05-30 07:34] LABS: ABSOLUTE BASOPHILS # (AUTO) 0.1 10^3/uL (0.0-0.2); ABSOLUTE EOSINOPHILS # (AUTO) 0.1 10^3/uL (0.0-0.6); ABSOLUTE LYMPHOCYTES (AUTO) 2.1 10^3/uL (0.5-4.7); ABSOLUTE NEUT (AUTO) 6.1 10^3/uL (1.7-8.2); BASOPHILS % (AUTO) 0.7 % (0-2); EOSINOPHILS % (AUTO) 1.1 % (0-6); HEMATOCRIT 41.5 % (36.0-47.0); HEMOGLOBIN 13.8 g/dL (12.0-15.5); LYMPHOCYTES % (AUTO) 22.7 % (13-45); MEAN CORPUSCULAR HGB CONC 33.2 g/dL (32.0-36.0); MEAN CORPUSCULAR VOLUME 87 fl (80-97); MONOCYTES % (AUTO) 10.6 % (3-13); PLATELET COUNT 158 10^3/uL (150-450); RED BLOOD COUNT 4.75 10^6/uL (3.72-5.28); RED CELL DISTRIBUTION WIDTH 13.8 % (11.5-14.0); SEGMENTED NEUTROPHILS % (AUTO) 64.9 % (42-78); TOTAL CELLS COUNTED % (AUTO) 100 %; WHITE BLOOD COUNT 9.3 10^3/uL (4.0-10.5)
[2017-05-30 09:00] LABS: ALANINE AMINOTRANSFERASE 35 U/L (9-52); ALBUMIN 3.6 g/dL (3.5-5.0); ALKALINE PHOSPHATASE 68 U/L (38-126); ANION GAP 6 (5-19); ASPARTATE AMINO TRANSFERASE 38 U/L (14-36); BILIRUBIN,DIRECT 0.2 mg/dL (0.0-0.4); BILIRUBIN,TOTAL 0.5 mg/dL (0.2-1.3); BLOOD UREA NITROGEN 16 mg/dL (7-20); CALCIUM 9.4 mg/dL (8.4-10.2); CARBON DIOXIDE 30 mmol/L (22-30); CHLORIDE 106 mmol/L (98-107); GLUCOSE 80 mg/dL (75-110); POTASSIUM 4.7 mmol/L (3.6-5.0); SODIUM 142.4 mmol/L (137-145); TOTAL PROTEIN 6.2 g/dL (6.3-8.2)
[2017-05-30] MEDS ORDERED: DILTIAZEM HCL 120 MG CAP.SR.24H PO SCH (10:00)
[2017-05-30] MEDS ORDERED: [UNRECOGNIZED DRUG - OTHER] PO SCH (10:00)
[2017-05-30] MEDS ORDERED: BECLOMETHASONE DIPROPIONATE IH SCH (10:00)
[2017-05-30] MEDS ORDERED: PHENYLEPHRINE HCL INJ/PF 10 MG/1 ML SDV ONE (10:34)
[2017-05-30] MEDS ORDERED: DEXAMETHASONE SOD PHOSPHATE INJ 4 MG/1 ML VIAL ONE (10:34)
[2017-05-30] MEDS ORDERED: SUCCINYLCHOLINE CHLORIDE INJ 200 MG/10 ML VIAL ONE (10:34)
[2017-05-30] MEDS ORDERED: ONDANSETRON HCL INJ/PF 4 MG/2 ML SDV ONE (10:34)
[2017-05-30] MEDS: MULTIVIT-STRESS FORMULA/ZINC TABLET PO SCH (10:55)
[2017-05-30] MEDS: MULTIVITAMIN TABLET PO SCH (10:55)
[2017-05-30] MEDS: SPIRONOLACTONE 25 MG TABLET PO SCH (10:56)
[2017-05-30] MEDS: DOCUSATE SODIUM 100 MG CAPSULE PO SCH (10:56)
[2017-05-30] MEDS: MORPHINE SULFATE 10 MG/ML INJ IV PRN ×2 (11:13→20:53)
--- NOTE | 2017-05-30 11:50 | PDOC PROGRESS REPORT ---
Subjective Progress Note for:: 05/30/17 Subjective:: Pt states that her pain is under control. Pt states that she was able to rest overnight. Pt states that she is scheduled for surgery this afternoon. Pt states that she has problems with constipation and uses miralax as needed. Pt states that her pain is controlled today 07/23. Reason For Visit: RIGHT ELBOW FRACTURE Physical Exam Vital Signs: Temp Pulse Resp BP Pulse Ox 98.1 F 55 L 16 123/65 100 05/30/17 08:01 05/30/17 08:01 05/30/17 08:01 05/30/17 08:01 05/30/17 08:31 Intake & Output 05/29/17 05/30/17 05/31/17 06:59 06:59 06:59 Intake Total 560 Balance 560 Weight 52.2 kg General appearance: PRESENT: no acute distress, thin Head exam: PRESENT: atraumatic, normocephalic Eye exam: PRESENT: conjunctiva pink, EOMI. ABSENT: scleral icterus Ear exam: PRESENT: normal external ear exam Mouth exam: PRESENT: moist, tongue midline Neck exam: ABSENT: carotid bruit, JVD, lymphadenopathy, thyromegaly Respiratory exam: PRESENT: clear to auscultation michael. ABSENT: rales, rhonchi, wheezes Cardiovascular exam: PRESENT: irregular rhythm Pulses: PRESENT: normal dorsalis pedis pul Vascular exam: PRESENT: normal capillary refill GI/Abdominal exam: PRESENT: normal bowel sounds, soft. ABSENT: distended, guarding, mass, organolmegaly, rebound, tenderness Rectal exam: PRESENT: deferred Extremities exam: PRESENT: full ROM. ABSENT: calf tenderness, clubbing, pedal edema Musculoskeletal exam: PRESENT: other - Right elbow with sling and dressing in place. FROM of Left upper, Left lower, and Right lower ext. Neurological exam: PRESENT: alert, awake, oriented to person, oriented to place , oriented to time, oriented to situation, CN II-XII grossly intact. ABSENT: motor sensory deficit Psychiatric exam: PRESENT: appropriate affect, normal mood. ABSENT: homicidal ideation, suicidal ideation Skin exam: PRESENT: dry, intact, warm. ABSENT: cyanosis, rash Results Laboratory Results: 05/30/17 06:46 05/30/17 08:22 05/29/17 05/29/17 05/29/17 17:30 17:30 18:10 WBC 10.8 H RBC 4.95 Hgb 14.6 Hct 43.6 MCV 88 MCH 29.5 MCHC 33.5 RDW 13.9 Plt Count 203 Seg Neutrophils % 70.0 Lymphocytes % 20.5 Monocytes % 7.7 Eosinophils % 1.1 Basophils % 0.7 Absolute Neutrophils 7.5 Absolute Lymphocytes 2.2 Absolute Monocytes 0.8 Absolute Eosinophils 0.1 Absolute Basophils 0.1 Sodium 143.3 Potassium 4.3 Chloride 106 Carbon Dioxide 27 Anion Gap 10 BUN 21 H Creatinine 0.71 Est GFR ( Amer) > 60 Est GFR (Non-Af Amer) > 60 Glucose 77 Calcium 9.8 Total Bilirubin 0.4 AST 37 H ALT 38 Alkaline Phosphatase 76 Total Protein 6.7 Albumin 4.0 Urine Color STRAW Urine Appearance CLEAR Urine pH 8.0 Ur Specific [place] 1.003 Urine Protein NEGATIVE Urine Glucose (UA) NEGATIVE Urine Ketones NEGATIVE Urine Blood NEGATIVE Urine Nitrite NEGATIVE Ur Leukocyte Esterase NEGATIVE Urine WBC (Auto) 1 Urine RBC (Auto) 0 05/30/17 05/30/17 05/30/17 06:46 06:46 08:22 WBC 9.3 RBC 4.75 Hgb 13.8 Hct 41.5 MCV 87 MCH 29.0 MCHC 33.2 RDW 13.8 Plt Count 158 Seg Neutrophils % 64.9 Lymphocytes % 22.7 Monocytes % 10.6 Eosinophils % 1.1 Basophils % 0.7 Absolute Neutrophils 6.1 Absolute Lymphocytes 2.1 Absolute Monocytes 1.0 Absolute Eosinophils 0.1 Absolute Basophils 0.1 Sodium Cancelled 142.4 Potassium Cancelled 4.7 Chloride Cancelled 106 Carbon Dioxide Cancelled 30 Anion Gap Cancelled 6 BUN Cancelled 16 Creatinine Cancelled 0.74 Est GFR ( Amer) Cancelled > 60 Est GFR (Non-Af Amer) Cancelled > 60 Glucose Cancelled 80 Calcium Cancelled 9.4 Total Bilirubin Cancelled 0.5 AST Cancelled 38 H ALT Cancelled 35 Alkaline Phosphatase Cancelled 68 Total Protein Cancelled 6.2 L Albumin Cancelled 3.6 Urine Color Urine Appearance Urine pH Ur Specific [place] Urine Protein Urine Glucose (UA) Urine Ketones Urine Blood Urine Nitrite Ur Leukocyte Esterase Urine WBC (Auto) Urine RBC (Auto) Impressions: Elbow X-Ray 05/29/17 16:07 IMPRESSION: Displaced olecranon fracture. Nondisplaced radial head fracture. Joint effusion. Presumed posttraumatic gas in the soft tissues posteriorly. Shoulder X-Ray 05/29/17 16:07 IMPRESSION: No acute fracture. Chest X-Ray 05/29/17 16:55 IMPRESSION: NO SIGNIFICANT RADIOGRAPHIC FINDING IN THE CHEST. Assessment & Plan - Diagnosis (1) Nondisplaced fracture of head of right radius Qualifiers: Encounter type: initial encounter Fracture type: open Open fracture type : open type I or II Qualified Code(s): S52.124B - Nondisplaced fracture of head of right radius, initial encounter for open fracture type I or II Is this a current diagnosis for this admission?: Yes Plan: In setting of osteoporosis: Pt is currently scheduled for surgery later today. (2) Constipation Is this a current diagnosis for this admission?: Yes Plan: Miralax PRN (3) Vertigo Is this a current diagnosis for this admission?: Yes Plan: Meclizine as needed (4) GERD (gastroesophageal reflux disease) Is this a current diagnosis for this admission?: Yes Plan: We will continue omeprazole (5) Allergic rhinitis Is this a current diagnosis for this admission?: Yes Plan: We will continue Singulair (6) Hyperlipidemia Is this a current diagnosis for this admission?: Yes Plan: Continue statin (7) Asthma Qualifiers: Asthma severity: unspecified severity Asthma persistence: unspecified Is this a current diagnosis for this admission?: Yes Plan: We will continue Qvar and DuoNebs PRN (8) Osteoporosis Is this a current diagnosis for this admission?: Yes Plan: She reports that she does not take medicine for osteoporosis. Will need to verify this with pharmacy. (9) Right shoulder injury Qualifiers: Encounter type: initial encounter Qualified Code(s): S49.91XA - Unspecified injury of right shoulder and upper arm, initial encounter Is this a current diagnosis for this admission?: Yes Plan: Secondary to fall: Supportive care. Morphine has been written for 1 mg IV every 4 hours as needed for pain. (10) Fall Qualifiers: Encounter type: initial encounter Qualified Code(s): W19.XXXA - Unspecified fall, initial encounter Is this a current diagnosis for this admission?: Yes Plan: We will have patient work with PT OT (11) Abnormal stress test Is this a current diagnosis for this admission?: Yes Plan: Patient had a nuclear medicine stress test April 2017 which demonstrated induced ischemia. Will have cardiology follow patient. (12) DVT prophylaxis Is this a current diagnosis for this admission?: Yes Plan: SCDs
[2017-05-30] MEDS ORDERED: BUPIVACAINE HCL 0.5 % INJ/PF 30 ML SDV ONE (15:54)
[2017-05-30] MEDS ORDERED: MIDAZOLAM 2 MG/2 ML INJ ONE (16:17)
[2017-05-30] MEDS ORDERED: FENTANYL CITRATE INJ/PF 100 MCG/2 ML AMPUL ONE (16:17)
[2017-05-30] MEDS ORDERED: PROPOFOL INJ 200 MG/20 ML VIAL IV ONE (16:17)
[2017-05-30] MEDS ORDERED: HYDROMORPHONE HCL INJ/PF 2 MG/ML AMPULE ONE (16:18)
[2017-05-30] MEDS ORDERED: ACETAMINOPHEN 100 ML IV ONE (16:18)
--- NOTE | 2017-05-30 16:48 | PDOC CONSULTATION ---
History of Present Illness Admission Date/PCP: 05/29/17 17:16 ELIZABET FIGUEROA MD Patient complains of: Right elbow injury History of Present Illness: GOPAL CORNELIUS is a 72 year old female presents to the emergency room complaining right elbow discomfort after sustaining a fall when visiting her son. She states she tripped on the pavement onto her right elbow. She had significant bruising and bleeding at the time of injury. She was then brought to the emergency room where x-rays demonstrated a fracture. Subsequently while in the emergency room the area was cleansed and patient was started on IV antibiotics for possible underlying open fracture. Currently patient states pain is worse with any motion. She denies numbness or tingling. Shoulder discomfort but that has improved. Did have a total shoulder arthroplasty years ago which was causing her minimal to no discomfort. Current pain 02/22. Past Medical History Cardiac Medical History: Reports: Congestive Heart Failure, Myocardial Infarction - 02/22, Hyperlipidema, Hypertension Denies: Coronary Artery Disease - Cardiomyopathy Pulmonary Medical History: Reports: Asthma - uses inhaler Denies: Bronchitis, Chronic Obstructive Pulmonary Disease (COPD), Pneumonia EENT Medical History: Reports: None Neurological Medical History: Denies: Seizures Endocrine Medical History: Reports: Hypothyroidism Renal/ Medical History: Reports: None Malignancy Medical History: Reports: None GI Medical History: Reports: None Denies: Hepatitis, Hiatal Hernia Musculoskeltal Medical History: Reports: Arthritis - hands Skin Medical History: Reports: None Psychiatric Medical History: Reports: None Hematology: Denies: Anemia, Sickle Cell Disease Infectious Medical History: Reports: None Past Surgical History Past Surgical History: Reports: Hysterectomy, Orthopedic Surgery - Bilateral shoulder rotator cuff surgery, righ shoulder replacement surgery. Denies: Amputation, Mastectomy, Pacemaker Social History Lives with: Family Smoking Status: Unknown if Ever Smoked Drugs: None - Advance Directive Resuscitation Status: Full Code Family History Family History: Arthritis, CAD, COPD, CVA, Hyperlipidemia, Hypertension, Malignancy. denies: DM, Thyroid Disfunction Parental Family History Reviewed: No Children Family History Reviewed: No Sibling(s) Family History Reviewed.: No Medication/Allergy Home Medications: Atorvastatin Calcium [Lipitor 20 mg Tablet] 20 mg PO QHS 05/30/17 Diltiazem HCl [Diltiazem ER] 240 mg PO DAILY 05/30/17 Levothyroxine Sodium [Synthroid 0.025 mg Tablet] 25 mcg PO Q6AM 05/30/17 Meloxicam [Mobic] 15 mg PO DAILY 05/30/17 Montelukast Sodium [Singulair 10 mg Tablet] 10 mg PO QHS 05/30/17 Multivitamin [Tab-A-Werner (Multiple Vitamin) Tablet] 1 tab PO DAILY 05/30/17 Qvar 40 Mcg Inhaler 1 puff IH Q12 05/30/17 Spironolactone [Aldactone 25 mg Tablet] 12.5 mg PO DAILY 05/30/17 Allergies/Adverse Reactions: Iodinated Contrast- Oral and IV Dye Allergy (Mild, Verified 05/29/17 15:28) Hives acetaminophen [From Percocet] Allergy (Verified 05/29/17 15:28) celecoxib [From Celebrex] Allergy (Verified 05/29/17 15:28) oxycodone HCl [From Percocet] Allergy (Verified 05/29/17 15:28) pravastatin [Pravastatin] Allergy (Verified 05/29/17 15:28) Review of Systems All systems: as per PMH Physical Exam Vital Signs: Temp Pulse Resp BP Pulse Ox 98.2 F 67 16 129/61 H 100 05/30/17 15:20 05/30/17 15:20 05/30/17 15:20 05/30/17 15:20 05/30/17 15:20 Intake & Output 05/29/17 05/30/17 05/31/17 06:59 06:59 06:59 Intake Total 560 Balance 560 Weight 52.2 kg General appearance: PRESENT: no acute distress, well-developed, well-nourished Head exam: PRESENT: atraumatic, normocephalic Eye exam: PRESENT: conjunctiva pink, EOMI, PERRLA. ABSENT: scleral icterus Ear exam: PRESENT: normal external ear exam Mouth exam: PRESENT: moist, tongue midline Neck exam: PRESENT: full ROM. ABSENT: carotid bruit, JVD, lymphadenopathy, thyromegaly Respiratory exam: PRESENT: unlabored Cardiovascular exam: PRESENT: RRR. ABSENT: diastolic murmur, rubs, systolic murmur Pulses: PRESENT: normal dorsalis pedis pul, +2 pedal pulses bilateral Vascular exam: PRESENT: normal capillary refill GI/Abdominal exam: PRESENT: normal bowel sounds, soft. ABSENT: distended, guarding, mass, organolmegaly, rebound, tenderness Rectal exam: PRESENT: deferred Musculoskeletal exam: PRESENT: other - Right elbow: Notable swelling and ecchymosis throughout with poor skin turgor. Patient has 1.5 cm skin tear along the lateral aspect of the elbow do not appreciate deep involvement to the bone. Appropriate tenderness palpation along the fracture sites. No medial sided tenderness. Limited motion secondary to pain. Patient able to make full composite fist. EPL/FPL intact. Neurological exam: PRESENT: alert, awake, oriented to person, oriented to place , oriented to time, oriented to situation, CN II-XII grossly intact. ABSENT: motor sensory deficit Psychiatric exam: PRESENT: appropriate affect, normal mood. ABSENT: homicidal ideation, suicidal ideation Skin exam: PRESENT: dry, intact, warm. ABSENT: cyanosis, rash Results Laboratory Results: 05/30/17 06:46 05/30/17 08:22 05/29/17 05/29/17 05/29/17 17:30 17:30 18:10 WBC 10.8 H RBC 4.95 Hgb 14.6 Hct 43.6 MCV 88 MCH 29.5 MCHC 33.5 RDW 13.9 Plt Count 203 Seg Neutrophils % 70.0 Lymphocytes % 20.5 Monocytes % 7.7 Eosinophils % 1.1 Basophils % 0.7 Absolute Neutrophils 7.5 Absolute Lymphocytes 2.2 Absolute Monocytes 0.8 Absolute Eosinophils 0.1 Absolute Basophils 0.1 Sodium 143.3 Potassium 4.3 Chloride 106 Carbon Dioxide 27 Anion Gap 10 BUN 21 H Creatinine 0.71 Est GFR ( Amer) > 60 Est GFR (Non-Af Amer) > 60 Glucose 77 Calcium 9.8 Total Bilirubin 0.4 AST 37 H ALT 38 Alkaline Phosphatase 76 Total Protein 6.7 Albumin 4.0 Urine Color STRAW Urine Appearance CLEAR Urine pH 8.0 Ur Specific Lutz 1.003 Urine Protein NEGATIVE Urine Glucose (UA) NEGATIVE Urine Ketones NEGATIVE Urine Blood NEGATIVE Urine Nitrite NEGATIVE Ur Leukocyte Esterase NEGATIVE Urine WBC (Auto) 1 Urine RBC (Auto) 0 05/30/17 05/30/17 05/30/17 06:46 06:46 08:22 WBC 9.3 RBC 4.75 Hgb 13.8 Hct 41.5 MCV 87 MCH 29.0 MCHC 33.2 RDW 13.8 Plt Count 158 Seg Neutrophils % 64.9 Lymphocytes % 22.7 Monocytes % 10.6 Eosinophils % 1.1 Basophils % 0.7 Absolute Neutrophils 6.1 Absolute Lymphocytes 2.1 Absolute Monocytes 1.0 Absolute Eosinophils 0.1 Absolute Basophils 0.1 Sodium Cancelled 142.4 Potassium Cancelled 4.7 Chloride Cancelled 106 Carbon Dioxide Cancelled 30 Anion Gap Cancelled 6 BUN Cancelled 16 Creatinine Cancelled 0.74 Est GFR ( Amer) Cancelled > 60 Est GFR (Non-Af Amer) Cancelled > 60 Glucose Cancelled 80 Calcium Cancelled 9.4 Total Bilirubin Cancelled 0.5 AST Cancelled 38 H ALT Cancelled 35 Alkaline Phosphatase Cancelled 68 Total Protein Cancelled 6.2 L Albumin Cancelled 3.6 Urine Color Urine Appearance Urine pH Ur Specific Lutz Urine Protein Urine Glucose (UA) Urine Ketones Urine Blood Urine Nitrite Ur Leukocyte Esterase Urine WBC (Auto) Urine RBC (Auto) 05/29/17 18:10 Clean Catch Midstream Urine Culture - Final Group B Beta Streptococcus Impressions: Elbow X-Ray 05/29/17 16:07 IMPRESSION: Displaced olecranon fracture. Nondisplaced radial head fracture. Joint effusion. Presumed posttraumatic gas in the soft tissues posteriorly. Shoulder X-Ray 05/29/17 16:07 IMPRESSION: No acute fracture. Chest X-Ray 05/29/17 16:55 IMPRESSION: NO SIGNIFICANT RADIOGRAPHIC FINDING IN THE CHEST. Status: Image reviewed by me - I have reviewed patient's radiographs which demonstrate displaced fracture of the olecranon with soft tissue air concerning for possible underlying open fracture. Associated radial head fracture with less than 2 mm of displacement. Assessment & Plan - Diagnosis (1) Nondisplaced fracture of head of right radius Qualifiers: Encounter type: initial encounter Fracture type: closed Qualified Code(s) : S52.124A - Nondisplaced fracture of head of right radius, initial encounter for closed fracture Is this a current diagnosis for this admission?: Yes (2) Open fracture olecranon process of ulna Qualifiers: Encounter type: initial encounter Open fracture type: open type I or II Laterality: right Qualified Code(s): S52.021B - Displaced fracture of olecranon process without intraarticular extension of right ulna, initial encounter for open fracture type I or II Is this a current diagnosis for this admission?: Yes Plan: Given patient's history of continued bleeding and underlying air within the soft tissues there is concern for possible grade 1 open fracture of the olecranon. Thus the decision was made to proceed with operative intervention and urgent basis. Patient currently is being treated with antibiotics for prophylactic. Discussed the details of the surgical procedure which includes open reduction internal fixation olecranon fracture possible excision with triceps advancement, ORIF radial head fracture. Decision on treatment of the radial head fracture will be made intraoperatively. Patient understands risks and benefits including infection, neurovascular injury, postoperative pain, skin complication/soft tissue healing, hardware failure or irritation, posttraumatic arthritis. She has verbalized understanding consented for the procedure.
--- NOTE | 2017-05-30 17:21 | EKG REPORT ---
SEVERITY:- OTHERWISE NORMAL ECG - SINUS RHYTHM ATRIAL PREMATURE COMPLEX : Confirmed by: Surekha Lemon 30-May-2017 17:20:52
[2017-05-30] MEDS ORDERED: FENTANYL CITRATE INJ/PF 100 MCG/2 ML AMPUL IV PRN ×3 (17:54)
[2017-05-30] MEDS ORDERED: DIPHENHYDRAMINE HCL 50 MG/ML VIAL IV PRN (17:54)
[2017-05-30] MEDS ORDERED: MEPERIDINE HCL/PF INJ 25 MG/1 ML DISP.SYRIN IV PRN (17:54)
[2017-05-30] MEDS ORDERED: PROMETHAZINE HCL INJ 25 MG/1 ML VIAL IV PRN ×2 (17:54)
--- NOTE | 2017-05-30 19:01 | Operative Report ---
Operative Report PREOPERATIVE DIAGNOSIS: 1. Olecranon Fracture Right Elbow. 2. Radial Head Fracture POSTOPERATIVE DIAGNOSIS: 1. Closed Olecranon Fracture. 2. Closed radial head fracture OPERATION: 1. Excision olecranon with triceps tendon repair. 2. closed treatment radial head fracture SURGEON: PATTY LACEY ANESTHESIA: GA COMPLICATIONS: None ESTIMATED BLOOD LOSS: Less than 25 cc INTRAOPERATIVE FINDINGS: Significant osteopenia PROCEDURE: Indication for above procedure: 72-year-old female who sustained a fall onto her right elbow. She was seen at the emergency room where she was started on antibiotics and the wound was cleansed. There was concern for open fracture thus it area was irrigated and patient was started on IV antibiotics. On consultation to discuss treatment options with the patient including operative versus nonoperative intervention. Risks and benefits were explained patient verbalized understanding consented for the procedure. Procedure detail: Procedure In Detail: Patient was seen and evaluated in the preoperative holding area. The upper extremity was initialized and marked. Patient had been receiving Ancef IV for bacterial prophylaxis. Patient was taken back to the operative room where transferred to the operative table and placed under general anesthesia. Patient was placed in the lateral recumbent position. Bilateral lower extremities and left upper extremity carefully padded. Once they were adequately anesthetized a nonsterile tourniquet was placed on the upper extremity. A surgical team debriefing was performed ensuring all instrumentation was available, the surgical procedure was discussed with possible concerns reviewed. The upper extremity was prepped with Betadine and draped in a sterile fashion. A timeout was done identifying correct patient, procedure and extremity everyone in attendance agree with this and verbalized no concerns. The extremity was exsanguinated the tourniquet was inflated to 200 mmHg. Patient had friable skin which caused the injury to the lateral aspect of her elbow she also had skin tear along the dorsal aspect of her forearm. A skin incision was made posteriorly with a slight curvature in the medial direction. The ulnar nerve was identified not released from the cubital tunnel. Inspection of the olecranon demonstrate a small olecranon fragment piece which would not provide good fixation and was less than 40% of the articular surface. Thus decision was made to proceed with excision and advancement of the triceps. Muhammad was utilized er's interval to inspect the radial head through the olecranon fracture. The radial head demonstrated good stability with palpation there is minimal articular step-off. The wound was copiously irrigated with normal saline and I turned my attention to olecranon repair. With #2 FiberWire a Krakw stitch was ran distal to proximal and proximal to distal on the radial and ulnar aspect of the triceps. For free sutures were then utilized for repair. Utilizing 2.0 mm drill I made to cruciate holes within the olecranon. And then 2 transverse holes. The inner sutures were then crossed and the outer sutures placed through the transverse hole providing a bone bridge. The transverse holes were first sutured with the elbow in full extension. I then secured the cruciate stitches with the elbow in full extension. Good stability of the triceps was noted. I was able to flex the elbow to 45 without significant tension. The wound was copiously irrigated with normal saline. Interval was closed with interrupted Kochers 2-0 Vicryl suture. Subcutaneous tissues were closed with interrupted 3-0 Monocryl suture. Skin was closed with interrupted 3-0 nylon suture. 20 cc of 0.5% Marcaine with epinephrine was injected for postoperative pain control. Wound was dressed with Adaptic, 4 x 4's and a soft bandage. Patient was placed in full extension with a plaster splint. Tourniquet was deflated. Sponge counts, instrument counts, needle counts counts were correct. Patient was then awoken from anesthesia. Transferred from the operating room table to the operating room stretcher. There was no intraoperative complications patient tolerated procedure well stable to PACU. Postoperative plan: Patient will seen occupational therapy prior to her scheduled appointment to be fitted for a thermoplastic splint check. Patient will begin occupational therapy as per triceps tendon repair protocol.
--- NOTE | 2017-05-30 19:03 | RADIOLOGY REPORT (SQ) ---
EXAM DESCRIPTION: ELBOW RIGHT AP/LAT; NO CHG FLUORO COMPLETED DATE/TIME: 05/30/2017 6:43 pm REASON FOR STUDY: ORIF RIGHT OLECRANON AND POSSIBLE RADIAL HEAD COMPARISON: 05/29/2017 FLUOROSCOPY TIME: 0.3 minutes 2 images saved to PACS. TECHNIQUE: Intra-operative images acquired during surgical procedure to evaluate progress. NUMBER OF IMAGES: 2 LIMITATIONS: None. FINDINGS: 2 LIMITED FLUOROSCOPIC IMAGES OF THE RIGHT ELBOW AGAIN DEMONSTRATES OLECRANON FRACTURE. N O DEFINITE RADIAL HEAD FRACTURE IDENTIFIED ON THESE IMAGES. IMPRESSION: IMAGE(S) OBTAINED DURING PROCEDURE. COMMENT: Quality ID [id number]: Final reports for procedures using fluoroscopy that document radiation exp osure indices, or exposure time and number of fluorographic images (if radiation exposure indices are not available) Please consult full operative report of the attending physician for description of the procedure. TECHNICAL DOCUMENTATION: JOB ID: [id number] [employer]- All Rights Reserved
[2017-05-30] MEDS ORDERED: PROMETHAZINE HCL INJ 25 MG/1 ML VIAL ONE (19:10)
[2017-05-30] MEDS: FENTANYL CITRATE INJ/PF 100 MCG/2 ML AMPUL ONE ×2 (19:13→19:20)
[2017-05-30] MEDS: MONTELUKAST SODIUM 10 MG TABLET PO SCH (21:21)
[2017-05-30] MEDS: ONDANSETRON HCL INJ/PF 4 MG/2 ML SDV IV PRN (21:21)
[2017-05-30] MEDS ORDERED: QVAR 40 MCG IH SCH (22:00)
[2017-05-30] MEDS ORDERED: MONTELUKAST SODIUM 10 MG TABLET PO SCH (22:00)
[2017-05-30] MEDS ORDERED: ATORVASTATIN CALCIUM 20 MG TABLET PO SCH ×2 (22:00)
[2017-05-31] MEDS: CEFAZOLIN 2 GM/D5W RTU 2 GM/50 ML RTUPB IV SCH ×3 (00:14→11:52)
[2017-05-31] MEDS: LANSOPRAZOLE 15 MG TAB.RAP.DR PO SCH (05:37)
[2017-05-31] MEDS: LEVOTHYROXINE SODIUM 0.025 MG TABLET PO SCH (05:38)
[2017-05-31] MEDS: MORPHINE SULFATE 10 MG/ML INJ IV PRN ×2 (05:50→09:44)
[2017-05-31] MEDS: ONDANSETRON HCL INJ/PF 4 MG/2 ML SDV IV PRN (05:51)
[2017-05-31] MEDS ORDERED: LEVOTHYROXINE SODIUM 0.025 MG TABLET PO SCH (06:00)
[2017-05-31 06:59] LABS: BLOOD UREA NITROGEN 10 mg/dL (7-20); GLUCOSE 328 mg/dL (75-110)
[2017-05-31 07:09] LABS: HEMATOCRIT 40.7 % (36.0-47.0); HEMOGLOBIN 13.1 g/dL (12.0-15.5); MEAN CORPUSCULAR HEMOGLOBIN 28.5 pg (27.0-33.4); MEAN CORPUSCULAR HGB CONC 32.2 g/dL (32.0-36.0); MEAN CORPUSCULAR VOLUME 88 fl (80-97); PLATELET COUNT 176 10^3/uL (150-450); RED CELL DISTRIBUTION WIDTH 13.9 % (11.5-14.0); WHITE BLOOD COUNT 15.8 10^3/uL (4.0-10.5)
[2017-05-31 07:13] LABS: CARBON DIOXIDE 22 mmol/L (22-30); CHLORIDE 94 mmol/L (98-107); SODIUM 137.8 mmol/L (137-145)
[2017-05-31 07:21] LABS: ANION GAP 22 (5-19); POTASSIUM 3.7 mmol/L (3.6-5.0)
[2017-05-31 07:42] LABS: ABSOLUTE LYMPHOCYTES# (MANUAL) 0.5 10^3/uL (0.5-4.7); ABSOLUTE MONOCYTES # (MANUAL) 0.6 10^3/uL (0.1-1.4); ABSOLUTE NEUTROPHILS# (MANUAL) 14.7 10^3/uL (1.7-8.2); BASOPHILS % (MANUAL) 0 % (0-2); EOSINOPHILS % (MANUAL) 0 % (0-6); LYMPHOCYTES % (MANUAL) 3 % (13-45); MONOCYTES % (MANUAL) 4 % (3-13); SEGMENTED NEUTROPHILS % (MAN) 93 % (42-78); TOTAL CELLS COUNTED 100
[2017-05-31 07:43] LABS: PLATELET COMMENT ADEQUATE; RBC MORPHOLOGY COMMENT NORMO-CYTIC/CHROMIC; TOXIC GRANULATION SLIGHT
--- NOTE | 2017-05-31 09:08 | PDOC PROGRESS REPORT ---
Subjective Progress Note for:: 05/31/17 Subjective:: Patient states pain is controlled. Denies fever chills or sweats. No issues overnight. Reason For Visit: RIGHT ELBOW FRACTURE Physical Exam Vital Signs: Temp Pulse Resp BP Pulse Ox 97.7 F 68 16 140/59 H 99 05/31/17 03:22 05/31/17 03:22 05/31/17 03:22 05/31/17 03:22 05/31/17 03:22 Intake & Output 05/30/17 05/31/17 06/01/17 06:59 06:59 06:59 Intake Total 2150 Output Total 510 Balance 1640 Weight 52.2 kg 70.5 kg Musculoskeletal exam: PRESENT: other - Right elbow: Splint clean/dry/intact no erythema or drainage. Intact flexion extension of the IP and MP joints. EPL/ FPL intact. Cap refill less than 2 seconds. Intact sensation to light touch. Results Laboratory Results: 05/31/17 06:21 05/31/17 06:21 05/31/17 05/31/17 06:21 06:21 WBC 15.8 H RBC 4.60 Hgb 13.1 Hct 40.7 MCV 88 MCH 28.5 MCHC 32.2 RDW 13.9 Plt Count 176 Seg Neutrophils % Not Reportable Lymphocytes % Not Reportable Monocytes % Not Reportable Eosinophils % Not Reportable Basophils % Not Reportable Absolute Neutrophils Not Reportable Absolute Lymphocytes Not Reportable Absolute Monocytes Not Reportable Absolute Eosinophils Not Reportable Absolute Basophils Not Reportable Sodium 137.8 Potassium 3.7 D Chloride 94 L Carbon Dioxide 22 Anion Gap 22 H BUN 10 Creatinine 0.58 Est GFR ( Amer) > 60 Est GFR (Non-Af Amer) > 60 Glucose 328 H Calcium 9.0 05/29/17 18:10 Clean Catch Midstream Urine Culture - Final Group B Beta Streptococcus Impressions: Shoulder X-Ray 05/29/17 16:07 IMPRESSION: No acute fracture. Chest X-Ray 05/29/17 16:55 IMPRESSION: NO SIGNIFICANT RADIOGRAPHIC FINDING IN THE CHEST. Elbow X-Ray 05/30/17 00:00 IMPRESSION: IMAGE(S) OBTAINED DURING PROCEDURE. Fluoroscopy 05/30/17 00:00 IMPRESSION: IMAGE(S) OBTAINED DURING PROCEDURE. Assessment & Plan - Diagnosis (1) Nondisplaced fracture of head of right radius Qualifiers: Encounter type: initial encounter Fracture type: closed Qualified Code(s) : S52.124A - Nondisplaced fracture of head of right radius, initial encounter for closed fracture Is this a current diagnosis for this admission?: Yes (2) Open fracture olecranon process of ulna Qualifiers: Encounter type: initial encounter Open fracture type: open type I or II Laterality: right Qualified Code(s): S52.021B - Displaced fracture of olecranon process without intraarticular extension of right ulna, initial encounter for open fracture type I or II Is this a current diagnosis for this admission?: Yes Plan: Patient status post excision olecranon with triceps advancement. Patient is doing well. I have given her prescription of hydrocodone. She will continue the splint at all times. May begin digit range of motion. She will follow-up with me in 2 weeks for recheck.
[2017-05-31] MEDS: MULTIVIT-STRESS FORMULA/ZINC TABLET PO SCH (09:23)
[2017-05-31] MEDS: MULTIVITAMIN TABLET PO SCH (09:26)
[2017-05-31] MEDS: DOCUSATE SODIUM 100 MG CAPSULE PO SCH (09:26)
[2017-05-31] MEDS: SPIRONOLACTONE 25 MG TABLET PO SCH (09:26)
--- NOTE | 2017-05-31 09:48 | EKG REPORT ---
SEVERITY:- OTHERWISE NORMAL ECG - SINUS RHYTHM ATRIAL PREMATURE COMPLEX : Confirmed by: Surekha Lemon 31-May-2017 09:47:29
[2017-05-31] MEDS ORDERED: MULTIVITAMIN TABLET PO SCH (10:00)
[2017-05-31] MEDS ORDERED: MELOXICAM 15 MG TABLET PO SCH (10:00)
[2017-05-31] MEDS ORDERED: METOPROLOL SUCCINATE 25 MG TAB.SR.24H PO SCH (10:00)
[2017-05-31] MEDS ORDERED: (PENDING PHARMACY ID) (Diltiazem Hcl [Diltiazem 24hr Er] 240 MG) PO SCH (10:00)
[2017-05-31] MEDS ORDERED: DILTIAZEM HCL 240 MG CAPSULE.CR PO SCH (10:00)
[2017-05-31] MEDS ORDERED: SPIRONOLACTONE 25 MG TABLET PO SCH (10:00)
[2017-05-31] MEDS ORDERED: DILTIAZEM HCL 240 MG CAPSULE.CR PO ONE (11:30)
[2017-05-31 12:58] VITALS: BP 123/48
[2017-05-31] MEDS ORDERED: BISACODYL 5 MG TABEC PO ONE (13:30)
--- NOTE | 2017-05-31 15:48 | PDOC PROGRESS REPORT ---
Subjective Progress Note for:: 05/31/17 Subjective:: 72-year-old female who was admitted on May 29, 2017 after she tripped and fell on her right side and was found to have a nondisplaced fracture of the head of the right radius Past medical history includes Osteoporosis Congestive heart failure Hyperlipidemia Hypertension Asthma Arthritis Hypothyroidism Anxiety Vertigo Allergic rhinitis GERD Abnormal stress test in April 2017 There was significant bruising and bleeding at the time of injury. The wound was cleansed and she was started on IV antibiotics. Reason For Visit: RIGHT ELBOW FRACTURE Physical Exam Vital Signs: Temp Pulse Resp BP Pulse Ox 97.7 F 68 16 140/59 H 99 05/31/17 03:22 05/31/17 03:22 05/31/17 03:22 05/31/17 03:22 05/31/17 03:22 Intake & Output 05/30/17 05/31/17 06/01/17 06:59 06:59 06:59 Intake Total 2150 Output Total 510 Balance 1640 Weight 52.2 kg 70.5 kg General appearance: PRESENT: no acute distress, cooperative Eye exam: PRESENT: conjunctiva pink Ear exam: PRESENT: TM's normal bilaterally Neck exam: ABSENT: tracheal deviation Respiratory exam: PRESENT: clear to auscultation michael, unlabored Cardiovascular exam: PRESENT: RRR. ABSENT: systolic murmur Pulses: PRESENT: normal carotid pulses GI/Abdominal exam: PRESENT: normal bowel sounds, soft. ABSENT: tenderness Rectal exam: PRESENT: deferred Extremities exam: ABSENT: calf tenderness, pedal edema Neurological exam: PRESENT: alert, altered, awake, oriented to person, oriented to place, oriented to time Psychiatric exam: PRESENT: appropriate affect, normal mood Results Laboratory Results: 05/31/17 06:21 05/31/17 06:21 05/30/17 05/31/17 05/31/17 08:22 06:21 06:21 WBC 15.8 H RBC 4.60 Hgb 13.1 Hct 40.7 MCV 88 MCH 28.5 MCHC 32.2 RDW 13.9 Plt Count 176 Seg Neutrophils % Not Reportable Lymphocytes % Not Reportable Monocytes % Not Reportable Eosinophils % Not Reportable Basophils % Not Reportable Absolute Neutrophils Not Reportable Absolute Lymphocytes Not Reportable Absolute Monocytes Not Reportable Absolute Eosinophils Not Reportable Absolute Basophils Not Reportable Sodium 142.4 137.8 Potassium 4.7 3.7 D Chloride 106 94 L Carbon Dioxide 30 22 Anion Gap 6 22 H BUN 16 10 Creatinine 0.74 0.58 Est GFR ( Amer) > 60 > 60 Est GFR (Non-Af Amer) > 60 > 60 Glucose 80 328 H Calcium 9.4 9.0 Total Bilirubin 0.5 AST 38 H ALT 35 Alkaline Phosphatase 68 Total Protein 6.2 L Albumin 3.6 05/29/17 18:10 Clean Catch Midstream Urine Culture - Final Group B Beta Streptococcus Impressions: Shoulder X-Ray 05/29/17 16:07 IMPRESSION: No acute fracture. Chest X-Ray 05/29/17 16:55 IMPRESSION: NO SIGNIFICANT RADIOGRAPHIC FINDING IN THE CHEST. Elbow X-Ray 05/30/17 00:00 IMPRESSION: IMAGE(S) OBTAINED DURING PROCEDURE. Fluoroscopy 05/30/17 00:00 IMPRESSION: IMAGE(S) OBTAINED DURING PROCEDURE. Assessment & Plan - Diagnosis (1) Abnormal stress test Is this a current diagnosis for this admission?: Yes (2) Allergic rhinitis Is this a current diagnosis for this admission?: Yes (3) Asthma Qualifiers: Asthma severity: unspecified severity Asthma persistence: unspecified Is this a current diagnosis for this admission?: Yes (4) Constipation Is this a current diagnosis for this admission?: Yes (5) DVT prophylaxis Is this a current diagnosis for this admission?: Yes (6) Fall Qualifiers: Encounter type: initial encounter Qualified Code(s): W19.XXXA - Unspecified fall, initial encounter Is this a current diagnosis for this admission?: Yes (7) GERD (gastroesophageal reflux disease) Is this a current diagnosis for this admission?: Yes (8) Hyperlipidemia Is this a current diagnosis for this admission?: Yes (9) Nondisplaced fracture of head of right radius Qualifiers: Encounter type: initial encounter Fracture type: closed Qualified Code(s) : S52.124A - Nondisplaced fracture of head of right radius, initial encounter for closed fracture Is this a current diagnosis for this admission?: Yes (10) Open fracture olecranon process of ulna Qualifiers: Encounter type: initial encounter Open fracture type: open type I or II Laterality: right Qualified Code(s): S52.021B - Displaced fracture of olecranon process without intraarticular extension of right ulna, initial encounter for open fracture type I or II Is this a current diagnosis for this admission?: Yes (11) Osteoporosis Is this a current diagnosis for this admission?: Yes (12) Right shoulder injury Qualifiers: Encounter type: initial encounter Qualified Code(s): S49.91XA - Unspecified injury of right shoulder and upper arm, initial encounter Is this a current diagnosis for this admission?: Yes (13) Vertigo Is this a current diagnosis for this admission?: Yes - Time Time Spent with patient: 25-34 minutes - Plan Summary Plan Summary: Discharge home today.
--- NOTE | 2017-05-31 15:54 | PDOC DISCHARGE SUMMARY ---
General - Admit/Disc Date/PCP Admission Date/Primary Care Provider: 05/29/17 17:16 ELIZABET FIGUEROA MD Orthopedics: Dr. Calles Discharge Date: 05/31/17 - Discharge Diagnosis (1) Abnormal stress test Is this a current diagnosis for this admission?: Yes (2) Allergic rhinitis Is this a current diagnosis for this admission?: Yes (3) Asthma Is this a current diagnosis for this admission?: Yes (4) Constipation Is this a current diagnosis for this admission?: Yes (5) DVT prophylaxis Is this a current diagnosis for this admission?: Yes (6) Fall Is this a current diagnosis for this admission?: Yes (7) GERD (gastroesophageal reflux disease) Is this a current diagnosis for this admission?: Yes (8) Hyperlipidemia Is this a current diagnosis for this admission?: Yes (9) Nondisplaced fracture of head of right radius Is this a current diagnosis for this admission?: Yes (10) Open fracture olecranon process of ulna Is this a current diagnosis for this admission?: Yes (11) Osteoporosis Is this a current diagnosis for this admission?: Yes (12) Right shoulder injury Is this a current diagnosis for this admission?: Yes (13) Vertigo Is this a current diagnosis for this admission?: Yes - Additional Information Resuscitation Status: Full Code Discharge Diet: As Tolerated, Regular Discharge Activity: No Lifting Over 10 Pounds, No Lifting/Push/Pulling Prescriptions: Cephalexin Monohydrate [Keflex 500 mg Capsule] 500 mg PO Q12 5 Days #11 capsule Hydrocodone/Acetaminophen [[place] 5-325 mg Tablet] 1 tab PO Q6 PRN #30 tablet PRN Reason: Metoprolol Succinate [Toprol Xl 25 mg Tab.sr] 12.5 mg PO Q12 15 Days #30 tab.sr.24h Home Medications: Atorvastatin Calcium [Lipitor 20 mg Tablet] 20 mg PO QHS 05/30/17 Diltiazem HCl [Diltiazem 24Hr ER] 240 mg PO DAILY 05/30/17 Hydrocodone/Acetaminophen [[place] 5-325 mg Tablet] 1 tab PO Q6 PRN #30 tablet Levothyroxine Sodium [Synthroid 0.025 mg Tablet] 25 mcg PO Q6AM 05/30/17 Meloxicam [Mobic] 15 mg PO DAILY 05/30/17 Montelukast Sodium [Singulair 10 mg Tablet] 10 mg PO QHS 05/30/17 Multivitamin [Tab-A-Werner (Multiple Vitamin) Tablet] 1 tab PO DAILY 05/30/17 Qvar 40 Mcg Inhaler 1 puff IH Q12 05/30/17 Spironolactone [Aldactone 25 mg Tablet] 12.5 mg PO DAILY 05/30/17 Albuterol Sulfate [Proair HFA Inhalation Aerosol 8.5 gm MDI] 1 puff IH Q4HP PRN hfa.aer.ad 05/31/17 Cephalexin Monohydrate [Keflex 500 mg Capsule] 500 mg PO Q12 5 Days #11 capsule 05/31/17 Docusate Sodium [Colace 100 mg Capsule] 100 mg PO DAILY capsule 05/31/17 Levothyroxine Sodium [Synthroid 0.025 mg Tablet] 0.025 mg PO Q6AM tablet Metoprolol Succinate [Toprol Xl 25 mg Tab.sr] 12.5 mg PO Q12 15 Days #30 tab.sr.24h 05/31/17 Montelukast Sodium [Singulair 10 mg Tablet] 10 mg PO QHS tablet 05/31/17 Multivit-Stress Formula/Zinc [Zbec Tablet] 1 tab PO DAILY tablet 05/31/17 Multivitamin [Tab-A-Werner (Multiple Vitamin) Tablet] 1 tab PO DAILY tablet 05/31 Spironolactone [Aldactone 25 mg Tablet] 25 mg PO DAILY tablet 05/31/17 History of Present Illness History of Present Illness: GOPAL CORNELIUS is a 72 year old female who was admitted on May 29, 2017 after she tripped and fell on her right side and was found to have a nondisplaced fracture of the head of the right radius and open fracture of the olecranon process of the R ulna. Past medical history includes Osteoporosis Congestive heart failure Hyperlipidemia Hypertension Asthma Arthritis Hypothyroidism Anxiety Vertigo Allergic rhinitis GERD Abnormal stress test in April 2017 There was significant bruising and bleeding at the time of injury. The wound was cleansed and she was started on IV antibiotics. She underwent surgery on 05/30/[address]es, and has been cleared for discharge home today. She feels well and has no complaints. Patient has a skin tear on her left forearm and has been instructed on wound care procedure at home. She will be given a prescription for Keflex to complete a course of antibiotics. Dr. Calles gave her a prescription for hydrocodone. She was seen by the cardiology service Dr. Lemon for preoperative evaluation prior to surgery given her recent abnormal stress test. He started her on metoprolol and she was given a prescription at discharge. The patient is to follow-up with them as an outpatient. Hospital Course Hospital Course: See above. Physical Exam Vital Signs: Temp Pulse Resp BP Pulse Ox 98.8 F 67 14 123/48 L 94 05/31/17 12:37 05/31/17 12:37 05/31/17 12:37 05/31/17 12:37 05/31/17 12:37 Intake & Output 05/30/17 05/31/17 06/01/17 06:59 06:59 06:59 Intake Total 2150 Output Total 510 Balance 1640 Weight 52.2 kg 70.5 kg General appearance: PRESENT: no acute distress Head exam: PRESENT: atraumatic, normocephalic Eye exam: PRESENT: conjunctiva pink. ABSENT: scleral icterus Ear exam: PRESENT: normal external ear exam Mouth exam: PRESENT: moist Throat exam: ABSENT: post pharyngeal erythema Neck exam: ABSENT: tracheal deviation Respiratory exam: PRESENT: clear to auscultation michael, unlabored Cardiovascular exam: PRESENT: RRR. ABSENT: systolic murmur Vascular exam: ABSENT: pallor GI/Abdominal exam: PRESENT: normal bowel sounds, soft Rectal exam: PRESENT: deferred Results Laboratory Results: 05/31/17 06:21 05/31/17 06:21 05/31/17 05/31/17 06:21 06:21 WBC 15.8 H RBC 4.60 Hgb 13.1 Hct 40.7 MCV 88 MCH 28.5 MCHC 32.2 RDW 13.9 Plt Count 176 Seg Neutrophils % Not Reportable Lymphocytes % Not Reportable Monocytes % Not Reportable Eosinophils % Not Reportable Basophils % Not Reportable Absolute Neutrophils Not Reportable Absolute Lymphocytes Not Reportable Absolute Monocytes Not Reportable Absolute Eosinophils Not Reportable Absolute Basophils Not Reportable Sodium 137.8 Potassium 3.7 D Chloride 94 L Carbon Dioxide 22 Anion Gap 22 H BUN 10 Creatinine 0.58 Est GFR ( Amer) > 60 Est GFR (Non-Af Amer) > 60 Glucose 328 H Calcium 9.0 05/29/17 18:10 Clean Catch Midstream Urine Culture - Final Group B Beta Streptococcus Impressions: Shoulder X-Ray 05/29/17 16:07 IMPRESSION: No acute fracture. Chest X-Ray 05/29/17 16:55 IMPRESSION: NO SIGNIFICANT RADIOGRAPHIC FINDING IN THE CHEST. Elbow X-Ray 05/30/17 00:00 IMPRESSION: IMAGE(S) OBTAINED DURING PROCEDURE. Fluoroscopy 05/30/17 00:00 IMPRESSION: IMAGE(S) OBTAINED DURING PROCEDURE. Status: Imported from PACS
[2017-05-31] MEDS ORDERED: FLUTICASONE PROPIONATE HFA 110 MCG/PUFF 12 GM MDI IH SCH (22:00)
[2017-05-31] MEDS ORDERED: CEPHALEXIN 500 MG CAPSULE PO SCH (22:00)
[2017-06-01] MEDS ORDERED: DILTIAZEM HCL 240 MG CAPSULE.CR PO SCH (10:00)
== END 2017-05-31 13:54 | disposition home or self-care (01) | DRG 500 ==
LOC: ER 15:25 → EH 17:16 → 2N 20:30
PROVIDERS: ADMIT Emergency Medicine; ATTEND Emergency Medicine
PROC: 0LS30ZZ Reposition Right Upper Arm Tendon, Open Approach (ICD-10-PCS; principal; 2017-05-29)
PROC: 0PSH0ZZ Reposition Right Radius, Open Approach (ICD-10-PCS; 2017-05-29)
PROC: 3E0234Z Introduction of Serum, Toxoid and Vaccine into Muscle, Percutaneous Approach (ICD-10-PCS; 2017-05-29)
DX: S52.124A Nondisplaced fracture of head of right radius, initial encounter for closed fracture (principal); S52.021B Displaced fracture of olecranon process without intraarticular extension of right ulna, initial encounter for open fracture type I or II; W01.0XXA Fall on same level from slipping, tripping and stumbling without subsequent striking against object, initial encounter; R94.39 Abnormal result of other cardiovascular function study; J45.909 Unspecified asthma, uncomplicated; K59.00 Constipation, unspecified; K21.9 Gastro-esophageal reflux disease without esophagitis; E78.5 Hyperlipidemia, unspecified; M81.0 Age-related osteoporosis without current pathological fracture; S49.91XA Unspecified injury of right shoulder and upper arm, initial encounter; R42 Dizziness and giddiness; I11.0 Hypertensive heart disease with heart failure; I50.9 Heart failure, unspecified; M19.90 Unspecified osteoarthritis, unspecified site; E03.9 Hypothyroidism, unspecified; F41.9 Anxiety disorder, unspecified; B95.1 Streptococcus, group B, as the cause of diseases classified elsewhere; M19.042 Primary osteoarthritis, left hand; M19.041 Primary osteoarthritis, right hand; I49.49 Other premature depolarization; Z23 Encounter for immunization; I25.2 Old myocardial infarction; Z79.899 Other long term (current) drug therapy; Z88.8 Allergy status to other drugs, medicaments and biological substances; Z88.6 Allergy status to analgesic agent; Z91.041 Radiographic dye allergy status; Z90.710 Acquired absence of both cervix and uterus; Z82.61 Family history of arthritis; Z82.49 Family history of ischemic heart disease and other diseases of the circulatory system; Z83.6 Family history of other diseases of the respiratory system; Z82.3 Family history of stroke; Z80.9 Family history of malignant neoplasm, unspecified
CPT/HCPCS: 01740; 36415; 71046; 80048; 80053; 81001; 85025; 85610; 85730; 87040; 87086; 87088; 90471; 90715; 93005; 93010; 99284; G8978-GP; G8979-GP; G8980-GP; G8987-GO; G8988-GO; J0131; J0330; J0690; J1100; J1170; J2250; J2270; J2370; J2405; J2550; J2704; J3010; J3490

== ENCOUNTER → 2017-10-13 | Outpatient (CLI) | payer MEDICARE, BC ==
--- NOTE | 2017-10-13 17:05 | WOMENS IMAGING REPORT ---
EXAM DESCRIPTION: 3D SCREENING MAMMO BILAT COMPLETED DATE/TIME: 10/13/2017 9:26 am REASON FOR STUDY: SCREENING MAMMO Z12.31 ENCNTR SCREEN MAMMOGRAM FOR MALIGNANT NEOPLASM OF [place] COMPARISON: 2014 to 2016 TECHNIQUE: Standard craniocaudal and mediolateral oblique views of each breast recorded using digita l acquisition and breast tomosynthesis. LIMITATIONS: None. FINDINGS: RIGHT BREAST MASSES: No suspicious masses. CALCIFICATIONS: No new or suspicious calcifications. ARCHITECTURAL DISTORTION: None. DEVELOPING DENSITY: None. ASYMMETRY: None noted. OTHER: No other significant findings. LEFT BREAST MASSES: No suspicious masses. CALCIFICATIONS: No new or suspicious calcifications. ARCHITECTURAL DISTORTION: None. DEVELOPING DENSITY: Developing density seen only on MLO view slightly superior 4 cm from the nipple ASYMMETRY: None noted. OTHER: No other significant findings. Read with the assistance of CAD. .[facility] - R2 [employer] Version 1.3 .[facility] - R2 Cenova Version 1.3 .[facility] - R2 Cenova Version 2.4 .[facility] - R2 Cenova Version 2.4 .[facility] - R2 Supervisor [place] Version 9.2 IMPRESSION: Developing density in the left breast BREAST DENSITY: c. The breasts are heterogeneously dense, which may obscure small masses. BIRAD: 0 Incomplete: Needs Additional Imaging Evaluation and/or prior Mammograms for Comparison. RECOMMENDATION: RECOMMENDED FOLLOW-UP: Spot compression with ultrasound if indicated The patient will be contacted for additional imaging. COMMENT: The patient has been notified of the results by letter per SA requirements. Additional no tification policies are in place for contacting patient with suspicious or incomplete findings. Quality ID #[id number]: The [employer] recommends an annual screening mammogram for women aged 40 years or over. This facility utilizes a reminder system to ensure that all patients receive reminder letters, and/or direct phone calls for appointments. This includes reminders for routine scr eening mammograms, diagnostic mammograms, or other Breast Imaging Interventions when appropriate. Th is patient will be placed in the appropriate reminder system. The [employer] (ACR) has developed recommendations for screening MRI of the breast s in certain patient populations, to be used in conjunction with mammography. Breast MRI surveillanc e may be appropriate for women with more than 20% lifetime risk of developing breast cancer as deter mined by genetic testing, significant family history of the disease, or history of mantle radiation f or Hodgkins Disease. ACR Practice Guidelines 2008. DBT Technology DBT is a type of tomographic mammography. With conventional mammography, overlapping breast tissue ma y make lesions difficult to detect, even with good compression. DBT uses an x-ray tube that rotates a round the breast, taking images at different angles. These images are then combined to create thin sl ices of the breast that the radiologist can view as a 3D reconstruction. The [employer] unit can perform full-field digital mammograms (2D imaging); or DBT (3D imaging); or both, in a combination mode that quickly performs both the mammogram and the tomosynthesis scan while the breast is still compressed. PQRS 6045F: Fluoroscopic imaging is not utilized for breast tomosynthesis. TECHNICAL DOCUMENTATION: FINDING NUMBER: (1) ASSESSMENT: (1) JOB ID: [id number] [employer]- All Rights Reserved Reading location - IP/workstation name: [email or web address]
== END ==
LOC: WI 08:54
PROVIDERS: ATTEND Student in an Organized Health Care Education/Training Program
DX: Z12.31 Encounter for screening mammogram for malignant neoplasm of breast (principal)
CPT/HCPCS: 77063; 77067

== ENCOUNTER → 2017-10-20 | Outpatient (CLI) | payer MEDICARE, BC ==
--- NOTE | 2017-10-20 09:01 | WOMENS IMAGING REPORT ---
EXAM DESCRIPTION: LEFT DIAGNOSTIC MAMMO W/CAD; U/S BREAST UNILAT LIMITED COMPLETED DATE/TIME: 10/20/2017 8:23 am; 10/20/2017 8:47 am REASON FOR STUDY: INCONCLUSIVE MAMMO; LEFT BREAST INCONCLUSIVE; R92.2 R92.2 INCONCLUSIVE MAMMOGRAM COMPARISON: 10/13/2017 and 09/13/2016. TECHNIQUE: MLO, CC, and true lateral images and spot compression MLO and CC images acquired. LIMITATIONS: None. FINDINGS: BREAST: left MASSES: No suspicious masses. CALCIFICATIONS: No new or suspicious calcifications. ARCHITECTURAL DISTORTION: None. DEVELOPING DENSITY: Dense heterogenous parenchyma in the superior and upper outer breast with no disc rete mass or architectural distortion identified. ASYMMETRY: None noted. OTHER: No other significant findings. BREAST ULTRASOUND: TECHNIQUE: Static and dynamic grayscale images acquired of the left breast in the specific areas of c linical/mammographic concern. Selected color Doppler images recorded. ELASTOGRAPHY PERFORMED: No. LIMITATIONS: None. FINDINGS: MASS: No mass identified. Dense glandular tissue. ELASTOGRAPHY CHARACTERISTICS: Not applicable. OTHER: No other significant finding. IMPRESSION: Dense breast parenchyma with no discrete or worrisome mammographic or sonographic findin gs. BREAST DENSITY: c. The breasts are heterogeneously dense, which may obscure small masses. BIRAD: 1 Negative. RECOMMENDATION: RECOMMENDED FOLLOW UP: Birads 1 or 2: The patient should resume routine screening . SPECIFIC INTERVENTION/IMAGING/CONSULTATION RECOMMENDED:No additional intervention/ imaging/consultati on needed at this time. COMMUNICATION:The imaging findings were not discussed with the patient. Her referring provider has be en notified of the findings. COMMENT: The patient has been notified of the results by letter per MQSA requirements. Additional no tification policies are in place for contacting patient with suspicious or incomplete findings. Quality ID #[id number]: The [employer] recommends an annual screening mammogram for women aged 40 years or over. This facility utilizes a reminder system to ensure that all patients receive reminder letters, and/or direct phone calls for appointments. This includes reminders for routine scr eening mammograms, diagnostic mammograms, or other Breast Imaging Interventions when appropriate. Th is patient will be placed in the appropriate reminder system. The [employer] (ACR) has developed recommendations for screening MRI of the breast s in certain patient populations, to be used in conjunction with mammography. Breast MRI surveillanc e may be appropriate for women with more than 20% lifetime risk of developing breast cancer as deter mined by genetic testing, significant family history of the disease, or history of mantle radiation f or Hodgkins Disease. ACR Practice Guidelines 2008. TECHNICAL DOCUMENTATION: FINDING NUMBER: (1) ASSESSMENT: (1) JOB ID: [id number]- All Rights Reserved Reading location - IP/workstation name: [email or web address]
== END ==
LOC: WI 07:44
PROVIDERS: ATTEND Student in an Organized Health Care Education/Training Program
DX: R92.2 Inconclusive mammogram (principal)
CPT/HCPCS: 76642

== ENCOUNTER 2017-12-13 13:50 | Observation (INO) | payer MEDICARE, BC ==
[2017-12-13] MEDS ORDERED: ASPIRIN 81 MG TABLET, CHEWABLE PO ONE (14:46)
--- NOTE | 2017-12-13 14:48 | ER Document Report ---
ED Medical Screen (RME) - General Chief Complaint: Chest Pain > 30 Stated Complaint: SHORTNESS OF BREATH, HEARTRATE ISSUE Time Seen by Provider: 12/13/17 14:45 Mode of Arrival: Ambulatory Information source: Patient Notes: This is a 72-year-old female with a history of asthma presents to the emergency room with left chest pain, shortness of breath and lightheadedness. Patient states she was usual state of health until shortly prior to arrival 1 weeks she started to go out shopping when she first started feeling lightheaded. She states that she felt shortness of breath after and then had sharp left-sided chest pain. Allergies: IV dye, multiple medicines (see above). Patient does state she can tolerate aspirin. Primary CARE physician: Saman Flores Behaviorist: Dr. Todd Crime Scene Evidence Technician: Dr. boateng TRAVEL OUTSIDE OF THE [place] IN LAST 30 DAYS: No - Related Data Allergies/Adverse Reactions: Iodinated Contrast- Oral and IV Dye Allergy (Mild, Verified 12/13/17 14:42) Hives acetaminophen [From Percocet] Allergy (Verified 12/13/17 14:42) celecoxib [From Celebrex] Allergy (Verified 12/13/17 14:42) oxycodone HCl [From Percocet] Allergy (Verified 12/13/17 14:42) pravastatin [Pravastatin] Allergy (Verified 12/13/17 14:42) Past Medical History - Social History Chew tobacco use (# tins/day): No Frequency of alcohol use: None Drug Abuse: None - Past Medical History Cardiac Medical History: Reports: Hx Congestive Heart Failure, Hx Heart Attack - 02/22, Hx Hypercholesterolemia, Hx Hypertension Denies: Hx Coronary Artery Disease - Cardiomyopathy Pulmonary Medical History: Reports: Hx Asthma - uses inhalers Denies: Hx Bronchitis, Hx COPD, Hx Pneumonia Neurological Medical History: Denies: Hx Cerebrovascular Accident, Hx Seizures Endocrine Medical History: Reports: Hx Hypothyroidism Renal/ Medical History: Denies: Hx Peritoneal Dialysis GI Medical History: Denies: Hx Hepatitis, Hx Hiatal Hernia, Hx Ulcer Musculoskeltal Medical History: Reports Hx Arthritis - hands, Reports Hx Musculoskeletal Deformity, Reports Hx Musculoskeletal Trauma Traumatic Medical History: Reports: Hx Fractures - Right elbow Infectious Medical History: Denies: Hx Hepatitis Past Surgical History: Reports: Hx Breast Surgery - Lumpectomy, Hx Genitourinary Surgery - Prolapsed bladder repair with lysis of adhesions in the pelvis at [place]., Hx Hysterectomy, Hx Orthopedic Surgery - Bilateral shoulder rotator cuff surgery, righ shoulder replacement surgery.. Denies: Hx Mastectomy , Hx Open Heart Surgery, Hx Pacemaker - Immunizations Immunizations up to date: Yes Hx Diphtheria, Pertussis, Tetanus Vaccination: Yes - 05/29/17 History of Influenza Vaccine for 02/2017 - 07/2017 Season: Yes Physical Exam - Vital signs Vitals: Temp Pulse Resp BP Pulse Ox 97.9 F 51 L 24 H 133/53 H 100 12/13/17 14:03 12/13/17 14:03 12/13/17 14:03 12/13/17 14:03 12/13/17 14:03 Course - Vital Signs Vital signs: Temp Pulse Resp BP Pulse Ox 97.9 F 51 L 24 H 133/53 H 100 12/13/17 14:03 12/13/17 14:03 12/13/17 14:03 12/13/17 14:03 12/13/17 14:03 Doctor's Discharge - Discharge Referrals: SAMAN FLORES DO [Primary Care Provider] - Follow up as needed
[2017-12-13] MEDS ORDERED: ONDANSETRON 4 MG TAB.RAPDIS PO ONE (15:17)
[2017-12-13 15:53] LABS: ABSOLUTE BASOPHILS # (AUTO) 0.1 10^3/uL (0.0-0.2); ABSOLUTE LYMPHOCYTES (AUTO) 1.3 10^3/uL (0.5-4.7); ABSOLUTE MONOCYTES (AUTO) 0.7 10^3/uL (0.1-1.4); ABSOLUTE NEUT (AUTO) 10.7 10^3/uL (1.7-8.2); BASOPHILS % (AUTO) 0.7 % (0-2); EOSINOPHILS % (AUTO) 0.3 % (0-6); HEMATOCRIT 44.4 % (36.0-47.0); HEMOGLOBIN 14.7 g/dL (12.0-15.5); MEAN CORPUSCULAR HEMOGLOBIN 29.1 pg (27.0-33.4); MEAN CORPUSCULAR HGB CONC 33.1 g/dL (32.0-36.0); MEAN CORPUSCULAR VOLUME 88 fl (80-97); MONOCYTES % (AUTO) 5.8 % (3-13); PLATELET COUNT 191 10^3/uL (150-450); RED BLOOD COUNT 5.05 10^6/uL (3.72-5.28); RED CELL DISTRIBUTION WIDTH 13.7 % (11.5-14.0); SEGMENTED NEUTROPHILS % (AUTO) 83.2 % (42-78); TOTAL CELLS COUNTED % (AUTO) 100 %; WHITE BLOOD COUNT 12.9 10^3/uL (4.0-10.5)
[2017-12-13 16:11] LABS: ALANINE AMINOTRANSFERASE 33 U/L (9-52); ALBUMIN 3.9 g/dL (3.5-5.0); ALKALINE PHOSPHATASE 73 U/L (38-126); ANION GAP 12 (5-19); ASPARTATE AMINO TRANSFERASE 35 U/L (14-36); BILIRUBIN,DIRECT 0.2 mg/dL (0.0-0.4); BILIRUBIN,TOTAL 0.5 mg/dL (0.2-1.3); BLOOD UREA NITROGEN 17 mg/dL (7-20); CALCIUM 9.6 mg/dL (8.4-10.2); CARBON DIOXIDE 26 mmol/L (22-30); CHLORIDE 104 mmol/L (98-107); CREATINE KINASE 63 U/L (30-135); GLUCOSE 117 mg/dL (75-110); SODIUM 142.4 mmol/L (137-145); TOTAL PROTEIN 6.8 g/dL (6.3-8.2)
[2017-12-13 16:24] LABS: CREATINE KINASE MB < 0.22 ng/mL (<4.55); TROPONIN I < 0.012 ng/mL
--- NOTE | 2017-12-13 16:54 | RADIOLOGY REPORT (SQ) ---
EXAM DESCRIPTION: CHEST SINGLE VIEW COMPLETED DATE/TIME: 12/13/2017 4:36 pm REASON FOR STUDY: chest pain, shortness of breath COMPARISON: 05/29/2017 EXAM PARAMETERS: NUMBER OF VIEWS: One view. TECHNIQUE: Single frontal radiographic view of the chest acquired. RADIATION DOSE: NA LIMITATIONS: None. FINDINGS: LUNGS AND PLEURA: No opacities, masses or pneumothorax. No pleural effusion. MEDIASTINUM AND HILAR STRUCTURES: No masses. Contour normal. HEART AND VASCULAR STRUCTURES: Heart normal in size. Normal vasculature. BONES: No acute findings. HARDWARE: Right shoulder prosthesis is again identified. OTHER: No other significant finding. IMPRESSION: NO ACUTE RADIOGRAPHIC FINDING IN THE CHEST. TECHNICAL DOCUMENTATION: JOB ID: [id number] [employer]- All Rights Reserved Reading location - IP/workstation name: [email or web address]
--- NOTE | 2017-12-13 17:36 | ER Document Report ---
ED General - General Chief Complaint: Chest Pain > 30 Stated Complaint: SHORTNESS OF BREATH, HEARTRATE ISSUE Time Seen by Provider: 12/13/17 14:45 Mode of Arrival: Ambulatory Information source: Patient Notes: 72 yr old female history of asthma no other known medical history presents with complaints of chest pain left-sided dull associated with shortness breath diaphoresis and vomiting. Patient notes she thought this was asthma exacerbation use her inhaler initially had some relief but the pain came back. She notes that over the past week now she has been having worsening shortness of breath. Patient's lease administration analyst is Dr. Todd had a stress test which was normal 2 years ago she is noted to have 4 leaky valves TRAVEL OUTSIDE OF THE [place] IN LAST 30 DAYS: No - HPI Onset: Just prior to arrival Onset/Duration: Sudden Quality of pain: Pressure Severity: Mild Pain Level: 1 Associated symptoms: Chest pain, Nausea, Vomiting, Shortness of breath Exacerbated by: Denies Relieved by: Denies Similar symptoms previously: No Recently seen / treated by doctor: No - Related Data Allergies/Adverse Reactions: Iodinated Contrast- Oral and IV Dye Allergy (Mild, Verified 12/13/17 14:42) Hives acetaminophen [From Percocet] Allergy (Verified 12/13/17 14:42) celecoxib [From Celebrex] Allergy (Verified 12/13/17 14:42) oxycodone HCl [From Percocet] Allergy (Verified 12/13/17 14:42) pravastatin [Pravastatin] Allergy (Verified 12/13/17 14:42) Past Medical History - General Information source: Patient - Social History Smoking Status: Former Smoker Cigarette use (# per day): No Chew tobacco use (# tins/day): No Smoking Education Provided: No Frequency of alcohol use: None Drug Abuse: None Family History: Arthritis, CAD, COPD, CVA, Hyperlipidemia, Hypertension, Malignancy. denies: DM, Thyroid Disfunction Patient has suicidal ideation: No Patient has homicidal ideation: No - Past Medical History Cardiac Medical History: Reports: Hx Congestive Heart Failure, Hx Heart Attack - 02/22, Hx Hypercholesterolemia, Hx Hypertension Denies: Hx Coronary Artery Disease - Cardiomyopathy Pulmonary Medical History: Reports: Hx Asthma - uses inhalers Denies: Hx Bronchitis, Hx COPD, Hx Pneumonia Neurological Medical History: Denies: Hx Cerebrovascular Accident, Hx Seizures Endocrine Medical History: Reports: Hx Hypothyroidism Renal/ Medical History: Denies: Hx Peritoneal Dialysis GI Medical History: Denies: Hx Hepatitis, Hx Hiatal Hernia, Hx Ulcer Musculoskeletal Medical History: Reports Hx Arthritis - hands, Reports Hx Musculoskeletal Deformity, Reports Hx Musculoskeletal Trauma Traumatic Medical History: Reports: Hx Fractures - Right elbow Infectious Medical History: Denies: Hx Hepatitis Past Surgical History: Reports: Hx Breast Surgery - Lumpectomy, Hx Genitourinary Surgery - Prolapsed bladder repair with lysis of adhesions in the pelvis at [place]., Hx Hysterectomy, Hx Orthopedic Surgery - Bilateral shoulder rotator cuff surgery, righ shoulder replacement surgery.. Denies: Hx Mastectomy , Hx Open Heart Surgery, Hx Pacemaker - Immunizations Immunizations up to date: Yes Hx Diphtheria, Pertussis, Tetanus Vaccination: Yes - 05/29/17 Hx Pneumococcal Vaccination: 02/13/11 Review of Systems - Review of Systems Notes: REVIEW OF SYSTEMS: CONSTITUTIONAL : Denies fever, chills, or sweats. Denies recent illness. EENT: Denies eye, ear, throat, or mouth pain or symptoms. Denies nasal or sinus congestion or discharge. Denies throat, tongue, or mouth swelling or difficulty swallowing. CARDIOVASCULAR: Admits to chest pain RESPIRATORY: Admits shortness of breath GASTROINTESTINAL: Admits to nausea vomiting GENITOURINARY: Denies difficulty urinating, painful urination, burning, frequency, blood in urine, or discharge. FEMALE GENITOURINARY: Denies vaginal bleeding, heavy or abnormal periods, irregular periods. Denies vaginal discharge or odor. MUSCULOSKELETAL: Denies back or neck pain or stiffness. Denies joint pain or swelling. SKIN: Denies rash, lesions or sores. HEMATOLOGIC : Denies easy bruising or bleeding. LYMPHATIC: Denies swollen, enlarged glands. NEUROLOGICAL: Denies confusion or altered mental status. Denies passing out or loss of consciousness. Denies dizziness or lightheadedness. Denies headache. Denies weakness or paralysis or loss of use of either side. Denies problems with gait or speech. Denies sensory loss, numbness, or tingling. Denies seizures. PSYCHIATRIC: Denies anxiety or stress. Denies depression, suicidal ideation, or homicidal ideation. ALL OTHER SYSTEMS REVIEWED AND NEGATIVE. PHYSICAL EXAMINATION: GENERAL: Well-appearing, well-nourished and in no acute distress. HEAD: Atraumatic, normocephalic. EYES: Pupils equal round and reactive to light, extraocular movements intact, conjunctiva are normal. ENT: Nares patent, oropharynx clear without exudates. Moist mucous membranes. NECK: Normal range of motion, supple without lymphadenopathy LUNGS: Breath sounds clear to auscultation bilaterally and equal. No wheezes rales or rhonchi. HEART: Regular rate and rhythm without murmurs ABDOMEN: Soft, nontender, nondistended abdomen. No guarding, no rebound. No masses appreciated. Female : deferred Musculoskeletal: Normal range of motion, no pitting or edema. No cyanosis. NEUROLOGICAL: Cranial nerves grossly intact. Normal speech, normal gait. Normal sensory, motor exams PSYCH: Normal mood, normal affect. SKIN: Warm, Dry, normal turgor, no rashes or lesions noted. Dictation was performed using [employer] voice recognition software Physical Exam - Vital signs Vitals: Temp Pulse Resp BP Pulse Ox 97.9 F 51 L 24 H 133/53 H 100 12/13/17 14:03 12/13/17 14:03 12/13/17 14:03 12/13/17 14:03 12/13/17 14:03 Course - Re-evaluation Re-evalutation: 12/13/17 17:36 Patient will be observed for ACS rule out - Vital Signs Vital signs: Temp Pulse Resp BP Pulse Ox 97.9 F 51 L 17 116/70 99 12/13/17 14:03 12/13/17 14:03 12/13/17 17:01 12/13/17 17:01 12/13/17 17:01 - Laboratory Result Diagrams: 12/13/17 15:17 12/13/17 15:17 Laboratory results interpreted by me: 12/13/17 12/13/17 15:17 15:17 WBC 12.9 H Seg Neutrophils % 83.2 H Lymphocytes % 10.0 L Absolute Neutrophils 10.7 H Glucose 117 H Discharge - Discharge Clinical Impression: Chest pain Qualifiers: Chest pain type: unspecified Qualified Code(s): R07.9 - Chest pain, unspecified Condition: Stable Disposition: ADMITTED OBSERVATION Admitting Provider: Hospitalist Unit Admitted: Telemetry Referrals: SAMAN FLORES DO [Primary Care Provider] - Follow up as needed
[2017-12-13] MEDS ORDERED: ALBUTEROL SULFATE 0.083% NEB 2.5 MG/3 ML AMPUL NEB PRN (18:26)
[2017-12-13] MEDS ORDERED: ONDANSETRON HCL INJ/PF 4 MG/2 ML SDV IV PRN (18:26)
[2017-12-13] MEDS ORDERED: NITROGLYCERIN 0.4 MG/TAB 25 TAB/BOTTLE SL PRN (18:44)
--- NOTE | 2017-12-13 19:11 | PDOC H&P ---
History of Present Illness Admission Date/PCP: SAMAN FLORES DO Patient complains of: chest pain History of Present Illness: GOPAL CORNELIUS is a 72 year old female with a past medical history of hypothyroidism and bronchial asthma who presented with chest pain. Patient reports that since last night she felt uncomfortable but she is unable to explain this symptom. Earlier this morning around 9 AM, she developed left- sided chest pain that she describes as pressure-like sensation, 4/10 intensity, episodic, nonexertional, nonpleuritic, nonradiating. She denies shortness of breath. No calf pain. Denies recent travel. She does complain that she had a few episodes of palpitations. She said that she had this in the past. She denies previous history of atrial fibrillation. She says that her last asthma attack was 3 months ago. She says that she thought this was an asthma attack and she did use her home inhalers which gave her only partial relief from the discomfort. Denies wheezing, fever or chills. She did state that the aspirin that she was given in the ER gave her some relief from the chest pain. Past Medical History Cardiac Medical History: Reports: Congestive Heart Failure, Myocardial Infarction - 02/22, Hyperlipidema, Hypertension Denies: Coronary Artery Disease - Cardiomyopathy Pulmonary Medical History: Reports: Asthma - uses inhalers Denies: Bronchitis, Chronic Obstructive Pulmonary Disease (COPD), Pneumonia Neurological Medical History: Denies: Seizures Endocrine Medical History: Reports: Hypothyroidism GI Medical History: Denies: Hepatitis, Hiatal Hernia Musculoskeltal Medical History: Reports: Arthritis - hands Hematology: Denies: Anemia, Sickle Cell Disease Past Surgical History Past Surgical History: Reports: Hysterectomy, Orthopedic Surgery - Bilateral shoulder rotator cuff surgery, righ shoulder replacement surgery. Denies: Amputation, Mastectomy, Pacemaker Social History Smoking Status: Former Smoker Drugs: None Family History Family History: Arthritis, CAD, COPD, CVA, Hyperlipidemia, Hypertension, Malignancy. denies: DM, Thyroid Disfunction Parental Family History Reviewed: Yes - hx of CHF-father, CVA-mother Children Family History Reviewed: Yes Sibling(s) Family History Reviewed.: Yes Medication/Allergy Home Medications: Atorvastatin Calcium [Lipitor 20 mg Tablet] 20 mg PO QHS 05/30/17 Diltiazem HCl [Diltiazem 24Hr ER] 240 mg PO DAILY 05/30/17 Hydrocodone/Acetaminophen [[place]idence 5-325 mg Tablet] 1 tab PO Q6 PRN #30 tablet Levothyroxine Sodium [Synthroid 0.025 mg Tablet] 25 mcg PO Q6AM 05/30/17 Meloxicam [Mobic] 15 mg PO DAILY 05/30/17 Montelukast Sodium [Singulair 10 mg Tablet] 10 mg PO QHS 05/30/17 Multivitamin [Tab-A-Werner (Multiple Vitamin) Tablet] 1 tab PO DAILY 05/30/17 Qvar 40 Mcg Inhaler 1 puff IH Q12 05/30/17 Spironolactone [Aldactone 25 mg Tablet] 12.5 mg PO DAILY 05/30/17 Albuterol Sulfate [Proair HFA Inhalation Aerosol 8.5 gm MDI] 1 puff IH Q4HP PRN hfa.aer.ad 05/31/17 Cephalexin Monohydrate [Keflex 500 mg Capsule] 500 mg PO Q12 5 Days #11 capsule 05/31/17 Docusate Sodium [Colace 100 mg Capsule] 100 mg PO DAILY capsule 05/31/17 Levothyroxine Sodium [Synthroid 0.025 mg Tablet] 0.025 mg PO Q6AM tablet Metoprolol Succinate [Toprol Xl 25 mg Tab.sr] 12.5 mg PO Q12 15 Days #30 tab.sr.24h 05/31/17 Montelukast Sodium [Singulair 10 mg Tablet] 10 mg PO QHS tablet 05/31/17 Multivit-Stress Formula/Zinc [Zbec Tablet] 1 tab PO DAILY tablet 05/31/17 Multivitamin [Tab-A-Werner (Multiple Vitamin) Tablet] 1 tab PO DAILY tablet 05/31 Spironolactone [Aldactone 25 mg Tablet] 25 mg PO DAILY tablet 05/31/17 Allergies/Adverse Reactions: Iodinated Contrast- Oral and IV Dye Allergy (Mild, Verified 12/13/17 14:42) Hives acetaminophen [From Percocet] Allergy (Verified 12/13/17 14:42) celecoxib [From Celebrex] Allergy (Verified 12/13/17 14:42) oxycodone HCl [From Percocet] Allergy (Verified 12/13/17 14:42) pravastatin [Pravastatin] Allergy (Verified 12/13/17 14:42) Review of Systems ROS unobtainable: Due to endotracheal tube, Due to mental status, Other Constitutional: ABSENT: chills, fever(s), headache(s), weight gain, weight loss Eyes: ABSENT: as per HPI, visual disturbances, other Cardiovascular: PRESENT: chest pain Respiratory: ABSENT: cough, hemoptysis Gastrointestinal: ABSENT: abdominal pain, constipation, diarrhea, hematemesis, hematochezia, nausea, vomiting Genitourinary: ABSENT: dysuria, hematuria Musculoskeletal: ABSENT: joint swelling Integumentary: ABSENT: rash, wounds Neurological: ABSENT: abnormal gait, abnormal speech, confusion, dizziness, focal weakness, syncope Physical Exam Vital Signs: Temp Pulse Resp BP Pulse Ox 97.9 F 51 L 17 116/70 99 12/13/17 14:03 12/13/17 14:03 12/13/17 17:01 12/13/17 17:01 12/13/17 17:01 Intake & Output 12/12/17 12/13/17 12/14/17 06:59 06:59 06:59 Weight 113 lb 1.554 oz General appearance: PRESENT: no acute distress, well-developed, well-nourished Head exam: PRESENT: atraumatic, normocephalic Eye exam: PRESENT: conjunctiva pink, EOMI, PERRLA. ABSENT: scleral icterus Neck exam: ABSENT: carotid bruit, JVD, lymphadenopathy, thyromegaly Respiratory exam: PRESENT: clear to auscultation michael. ABSENT: rales, rhonchi, wheezes Cardiovascular exam: PRESENT: RRR, other - minimal point tenderness on the left inframammary aspect. ABSENT: diastolic murmur, rubs, systolic murmur Pulses: PRESENT: normal dorsalis pedis pul GI/Abdominal exam: PRESENT: normal bowel sounds, soft. ABSENT: distended, guarding, mass, organolmegaly, rebound, tenderness Rectal exam: PRESENT: deferred Neurological exam: PRESENT: alert, oriented to person, oriented to place, oriented to time Skin exam: PRESENT: dry, intact, warm. ABSENT: cyanosis, rash Results Laboratory Results: 12/13/17 15:17 12/13/17 15:17 12/13/17 12/13/17 15:17 15:17 WBC 12.9 H RBC 5.05 Hgb 14.7 Hct 44.4 MCV 88 MCH 29.1 MCHC 33.1 RDW 13.7 Plt Count 191 Seg Neutrophils % 83.2 H Lymphocytes % 10.0 L Monocytes % 5.8 Eosinophils % 0.3 Basophils % 0.7 Absolute Neutrophils 10.7 H Absolute Lymphocytes 1.3 Absolute Monocytes 0.7 Absolute Eosinophils 0.0 Absolute Basophils 0.1 Sodium 142.4 Potassium 4.0 Chloride 104 Carbon Dioxide 26 Anion Gap 12 BUN 17 Creatinine 0.72 Est GFR ( Amer) > 60 Est GFR (Non-Af Amer) > 60 Glucose 117 H Calcium 9.6 Total Bilirubin 0.5 AST 35 ALT 33 Alkaline Phosphatase 73 Total Protein 6.8 Albumin 3.9 12/13/17 12/13/17 15:17 15:17 Creatine Kinase 63 CK-MB (CK-2) < 0.22 Troponin I < 0.012 Impressions: Chest X-Ray 12/13/17 14:46 IMPRESSION: NO ACUTE RADIOGRAPHIC FINDING IN THE CHEST. Assessment & Plan - Diagnosis (1) Chest pain Qualifiers: Chest pain type: other chest pain Qualified Code(s): R07.89 - Other chest pain; R07.8 - Other chest pain Plan: Patient has atypical chest pain. Differential diagnoses include cardiac in origin versus musculoskeletal pain. Patient did mention that she had a stress test 2 years ago but this was not completed because she was unable to complete the procedure. She did have minimal point tenderness in the left inframammary area. She however reported partial relief from the albuterol as well as from the aspirin. Initial troponin was normal. Initial EKG only showed few PVCs. We will cycle cardiac enzymes and EKGs every 6hours. (2) Hypothyroidism Qualifiers: Hypothyroidism type: unspecified Qualified Code(s): E03.9 - Hypothyroidism , unspecified Is this a current diagnosis for this admission?: Yes Plan: Resume Synthroid. (3) Asthma Qualifiers: Asthma severity: unspecified severity Asthma persistence: unspecified Asthma complication type: unspecified Qualified Code(s): J45.909 - Unspecified asthma, uncomplicated Plan: She does not have wheezing currently on physical examination although she reported partial relief from the breathing treatments at home. Continue albuterol as needed. - Time Time Spent: 50 to 70 Minutes Within: within 24 hours
[2017-12-13] MEDS ORDERED: ATORVASTATIN CALCIUM 10 MG TABLET PO SCH (22:00)
[2017-12-13] MEDS ORDERED: ATORVASTATIN CALCIUM 20 MG TABLET PO SCH (22:00)
[2017-12-13] MEDS ORDERED: MONTELUKAST SODIUM 10 MG TABLET PO SCH (22:00)
[2017-12-13] MEDS: HEPARIN SOD (PORCINE) 5,000 UNIT/ML 1 ML SYRINGE SUBCUT SCH (22:04)
--- NOTE | 2017-12-13 22:14 | EKG REPORT ---
SEVERITY:- OTHERWISE NORMAL ECG - SINUS RHYTHM VENTRICULAR PREMATURE COMPLEX INTERPOLATED VENTRICULAR PREMATURE COMPLEX : Confirmed by: Surekha Lemon 13-Dec-2017 22:13:24
[2017-12-14] MEDS: HEPARIN SOD (PORCINE) 5,000 UNIT/ML 1 ML SYRINGE SUBCUT SCH ×2 (05:47→14:51)
[2017-12-14] MEDS ORDERED: LEVOTHYROXINE SODIUM 0.025 MG TABLET PO SCH ×3 (06:00→08:00)
[2017-12-14] MEDS ORDERED: ASPIRIN 81 MG TABLET, CHEWABLE PO SCH (10:00)
[2017-12-14] MEDS ORDERED: DOCUSATE SODIUM 100 MG CAPSULE PO SCH (10:00)
[2017-12-14] MEDS ORDERED: REGADENOSON INJ 0.4 MG/5 ML DISP.SYRIN IV ONE (13:11)
--- NOTE | 2017-12-14 15:40 | PDOC DISCHARGE SUMMARY ---
General - Admit/Disc Date/PCP Admission Date/Primary Care Provider: 12/13/17 19:12 SAMAN FLORES, Discharge Date: 12/14/17 - Discharge Diagnosis (2) Hypothyroidism Is this a current diagnosis for this admission?: Yes - Additional Information Resuscitation Status: Full Code Discharge Diet: As Tolerated Discharge Activity: Activity As Tolerated Home Medications: Albuterol Sulfate [Proair HFA] 2 puff IH QIDP PRN 12/13/17 Aspirin [Ecotrin 81 mg EC Tablet] 81 mg PO DAILY 12/13/17 Atorvastatin Calcium [Lipitor 10 mg Tablet] 10 mg PO QHS 12/13/17 Beclomethasone Dipropionate [Qvar] 1 inh IH Q12 12/13/17 Diltiazem HCl [Diltiazem ER] 240 mg PO QPM 12/13/17 Levothyroxine Sodium [Synthroid] 25 mcg PO Q6AM 12/13/17 Montelukast Sodium [Singulair 10 mg Tablet] 10 mg PO QHS 12/13/17 Omeprazole 20 mg PO QPM 12/13/17 Spironolactone [Aldactone 25 mg Tablet] 25 mg PO QAM 12/13/17 History of Present Illness History of Present Illness: GOPAL CORNELIUS is a 72 year old female with a past medical history of hypothyroidism and bronchial asthma who presented with chest pain. Patient reports that since last night she felt uncomfortable but she is unable to explain this symptom. Earlier this morning around 9 AM, she developed left- sided chest pain that she describes as pressure-like sensation, 4/10 intensity, episodic, nonexertional, nonpleuritic, nonradiating. She denies shortness of breath. No calf pain. Denies recent travel. She does complain that she had a few episodes of palpitations. She said that she had this in the past. She denies previous history of atrial fibrillation. She says that her last asthma attack was 3 months ago. She says that she thought this was an asthma attack and she did use her home inhalers which gave her only partial relief from the discomfort. Denies wheezing, fever or chills. She did state that the aspirin that she was given in the ER gave her some relief from the chest pain. Hospital Course Hospital Course: Ms. Cornelius is a 72-year-old female with a past medical history of hypothyroidism, hypertension and bronchial asthma who presented with chest pain. She was admitted to rule out acute coronary syndrome. Patient did not complain of any shortness of breath. She had a Well's score of 0. She was saturating at 100% all throughout this hospital course at room air. Her troponins were negative 3. EKG was unremarkable for signs of infarction aside from occasional premature atrial contractions. Stress test was pursued. Discussed the results of stress test with inhalation therapist, Dr. Issa over the phone who said a stress test was normal. Patient does have point tenderness on the left infra mammary aspect, anterior axillary line. Her chest pain is likely musculoskeletal in origin. Advised patient to use [id number] Motrin at home and warm compress over the site. Physical Exam Vital Signs: Temp Pulse Resp BP Pulse Ox 97.8 F 49 L 14 126/51 H 100 12/14/17 07:11 12/14/17 07:11 12/14/17 07:11 12/14/17 07:11 12/14/17 07:11 Intake & Output 12/13/17 12/14/17 12/15/17 06:59 06:59 06:59 Intake Total 0 Output Total 0 Balance 0 Weight 112 lb 14.027 oz General appearance: PRESENT: no acute distress, well-developed, well-nourished Head exam: PRESENT: atraumatic, normocephalic Eye exam: PRESENT: conjunctiva pink, EOMI, PERRLA. ABSENT: scleral icterus Neck exam: ABSENT: carotid bruit, JVD, lymphadenopathy, thyromegaly Respiratory exam: PRESENT: clear to auscultation michael. ABSENT: rales, rhonchi, wheezes Cardiovascular exam: PRESENT: RRR, other - Point tenderness on palpation over the left inframammary aspect of the chest, anterior axillary line. ABSENT: diastolic murmur, rubs, systolic murmur Vascular exam: PRESENT: normal capillary refill GI/Abdominal exam: PRESENT: normal bowel sounds, soft. ABSENT: distended, guarding, mass, organolmegaly, rebound, tenderness Rectal exam: PRESENT: deferred Extremities exam: PRESENT: full ROM. ABSENT: calf tenderness, clubbing, pedal edema Musculoskeletal exam: PRESENT: ambulatory Neurological exam: PRESENT: alert, awake, oriented to person, oriented to place , oriented to time, oriented to situation, CN II-XII grossly intact. ABSENT: motor sensory deficit Skin exam: PRESENT: dry, intact, warm. ABSENT: cyanosis, rash Results Laboratory Results: 12/14/17 12/14/17 07:00 07:00 Magnesium 1.8 TSH 1.54 12/14/17 12/14/17 00:56 07:00 Troponin I < 0.012 < 0.012 Impressions: Chest X-Ray 12/13/17 14:46 IMPRESSION: NO ACUTE RADIOGRAPHIC FINDING IN THE CHEST. Qualifiers - * PATIENT BEING DISCHARGED WITH ANY OF THE FOLLOWING DIAGNOSIS: No
[2017-12-14 16:32] VITALS: BP 122/35
[2017-12-14] MEDS ORDERED: LANSOPRAZOLE 15 MG TAB.RAP.DR PO SCH (18:00)
[2017-12-14] MEDS ORDERED: DILTIAZEM HCL 240 MG CAPSULE.CR PO SCH (18:00)
--- NOTE | 2017-12-14 21:55 | EKG REPORT ---
SEVERITY:- ABNORMAL ECG - SINUS BRADYCARDIA ATRIAL PREMATURE COMPLEX CONSIDER ANTEROSEPTAL INFARCT : Confirmed by: Surekha Lemon 14-Dec-2017 21:55:19
--- NOTE | 2017-12-14 21:55 | EKG REPORT ---
SEVERITY:- ABNORMAL ECG - SINUS RHYTHM MULTIPLE ATRIAL PREMATURE COMPLEXES CONSIDER ANTEROSEPTAL INFARCT : Confirmed by: Surekha Lemon 14-Dec-2017 21:55:38
--- NOTE | 2017-12-20 22:44 | DRAGON STRESS TEST REPORT ---
Intravenous Lexiscan Cardiolite stress test using single photon emmision computerized tomography. Date of procedure: 12/14/2017. Ordering Provider: Dr. Urban. Patient's status: In Patient. Indication: Chest pain. Coronary risk factors: Age, and dyslipidemia. Resting EKG: Sinus Rhythm. Frequent APCs. Stress EKG: No changes of ischemia. The patient had no chest pain or discomfort, and there were no arrhythmias seen. Reason for termination: Protocol. Conclusions: Normal EKG and hemodynamic response to IV Lexiscan. Nuclear data: At rest the patient was given 10.81 millicuries of technetium 99m sestamibi injected intravenously. As per protocol rest non gated SPECT images were obtained. Subsequently the patient was given intravenous Lexiscan at a dose of 0.4 mg in 5 mL intravenously, followed by flush with normal saline. Subsequently the stress dose of 31.2 millicuries of technetium 99m sestamibi was injected intravenously. As per protocol stress gated images were obtained. Nuclear interpretation: Review of images showed that all segments of the myocardium had normal perfusion at rest, and normal perfusion post stress with IV Lexiscan. All segments of the myocardium had normal motion, contraction, and thickening by gated study. T. I D. ratio was normal at 0.99. Computer read rest, and stress left ventricular ejection fraction were 51 %, and 56 %, respectively. Visually both the stress and rest ejection fractions were normal, and greater than 55%. Conclusion: 1. There is no scintigraphic evidence of Lexiscan induced myocardial ischemia. 2. There is no scintigraphic evidence of myocardial infarction/scar. Recommendations: Aggressive risk factor modification, and treating the underlying co- morbidities. MTDD
== END 2017-12-14 16:54 | disposition home or self-care (01) ==
LOC: ER 13:50 → EH 19:12 → 5 20:31
PROVIDERS: ADMIT Internal Medicine; ATTEND Internal Medicine
DX: R07.89 Other chest pain (principal); E03.9 Hypothyroidism, unspecified; J45.909 Unspecified asthma, uncomplicated; R00.2 Palpitations; I49.3 Ventricular premature depolarization; R11.2 Nausea with vomiting, unspecified; I25.2 Old myocardial infarction; Z79.82 Long term (current) use of aspirin; Z79.899 Other long term (current) drug therapy; Z87.891 Personal history of nicotine dependence; Z82.49 Family history of ischemic heart disease and other diseases of the circulatory system; Z98.890 Other specified postprocedural states; Z90.710 Acquired absence of both cervix and uterus
CPT/HCPCS: 93005 ×3; 99285; 36415 ×2; 82553; 82550; 83735; 84443; 85025; 80053; 84484 ×2; 93017; 71045; 78452; 93010 ×2; G0378 ×2; A9500; J2785; A9270 ×6; J1644 ×2; J3490; Q9969; S0119

== ENCOUNTER → 2019-02-12 | Outpatient (CLI) | payer MEDICARE, BC ==
--- NOTE | 2019-02-12 14:40 | WOMENS IMAGING REPORT ---
EXAM DESCRIPTION: 3D SCREENING MAMMO BILAT COMPLETED DATE/TIME: 02/12/2019 8:36 am REASON FOR STUDY: Z12.31 SCREENING MAMMO Z12.31 ENCNTR SCREEN MAMMOGRAM FOR MALIGNANT NEOPLASM OF B RE COMPARISON: Multiple since 2014 EXAM PARAMETERS: Views: Standard craniocaudal and mediolateral oblique views of each breast recorded using digital acquisition and breast tomosynthesis. Read with the assistance of CAD. .[facility] - [employer] Version 9.2 LIMITATIONS: None. FINDINGS: No suspicious masses, suspicious calcifications or architectural distortion. No areas of c oncern. IMPRESSION: NEGATIVE MAMMOGRAM. BIRADS 1. BREAST DENSITY: c. The breasts are heterogeneously dense, which may obscure small masses. BIRAD: ASSESSMENT: 1 NEGATIVE RECOMMENDATION: ROUTINE SCREENING Please continue yearly bilateral screening tomosynthesis in January 2020 given heterogeneously dens e tissue bilaterally. COMMENT: The patient has been notified of the results by letter per MQSA requirements. Additional no tification policies are in place for contacting patient with suspicious or incomplete findings. Quality ID #225: The [employer] recommends an annual screening mammogram for women aged 40 years or over. This facility utilizes a reminder system to ensure that all patients receive reminder letters, and/or direct phone calls for appointments. This includes reminders for routine scr eening mammograms, diagnostic mammograms, or other Breast Imaging Interventions when appropriate. Th is patient will be placed in the appropriate reminder system. TECHNICAL DOCUMENTATION: FINDING NUMBER: (1) ASSESSMENT: (1) JOB ID: [id number] [employer]- All Rights Reserved Reading location - IP/workstation name: [email or web address]
== END ==
LOC: WI 07:40
PROVIDERS: ATTEND Family Medicine
DX: Z12.31 Encounter for screening mammogram for malignant neoplasm of breast (principal)
CPT/HCPCS: 77063; 77067

== ENCOUNTER → 2020-02-01 | Outpatient (CLI) | payer MEDICARE, BC | LOC: OD 11:28 | PROVIDERS: ATTEND Family Medicine | DX: E03.9 Hypothyroidism, unspecified (principal) | CPT/HCPCS: 36415; 84443 ==

== ENCOUNTER → 2020-02-05 | Outpatient (CLI) | payer MEDICARE, BC ==
--- NOTE | 2020-02-05 10:29 | WOMENS IMAGING REPORT ---
EXAM DESCRIPTION: 3D SCREENING MAMMO BILAT IMAGES COMPLETED DATE/TIME: 02/05/2020 8:56 am REASON FOR STUDY: Z12.31 ENCOUNTER FOR SCREENING MAMMOGRAM FOR MALIGNANT NEOPLASM OF BREAST Z12.31 ENCNTR SCREEN MAMMOGRAM FOR MALIGNANT NEOPLASM OF [place] COMPARISON: Multiple since 2016 EXAM PARAMETERS: Views: Standard craniocaudal and mediolateral oblique views of each breast recorded using digital acquisition and breast tomosynthesis. Read with the assistance of CAD. .[facility] / [facility] - [place] [employer] Version 9.2 LIMITATIONS: None. FINDINGS: No suspicious masses, suspicious calcifications or architectural distortion. No areas of c oncern. IMPRESSION: NEGATIVE MAMMOGRAM. BIRADS 1. BREAST DENSITY: c. The breasts are heterogeneously dense, which may obscure small masses. BIRAD: ASSESSMENT: 1 NEGATIVE RECOMMENDATION: ROUTINE SCREENING Please continue yearly bilateral screening mammography/tomosynthesis in January 2021 COMMENT: The patient has been notified of the results by letter per MQSA requirements. Additional no tification policies are in place for contacting patient with suspicious or incomplete findings. Quality ID #[id number]: The [employer] recommends an annual screening mammogram for women aged 40 years or over. This facility utilizes a reminder system to ensure that all patients receive reminder letters, and/or direct phone calls for appointments. This includes reminders for routine scr eening mammograms, diagnostic mammograms, or other Breast Imaging Interventions when appropriate. Th is patient will be placed in the appropriate reminder system. TECHNICAL DOCUMENTATION: FINDING NUMBER: (1) ASSESSMENT: (1) JOB ID: [id number] 2010 [email or web address]- All Rights Reserved Reading location - IP/workstation name: [email or web address]
== END ==
LOC: WI 09:19
PROVIDERS: ATTEND Family Medicine
DX: Z12.31 Encounter for screening mammogram for malignant neoplasm of breast (principal)
CPT/HCPCS: 77063; 77067

== ENCOUNTER → 2020-03-20 | Outpatient (CLI) | payer MEDICARE, BC ==
[2020-03-20 11:04] VITALS: BP 136/59
--- NOTE | 2020-03-20 11:04 | ER [facility] ASSESSMENT REPORT ---
Intake - In the Last 14 days Have you traveled outside [place]?: No Have you been in close contact with someone CONFIRMED: Yes Worked in Healthcare?: No - Symptoms Subjective Fever([place] feverish): No Chills: No Muscule Aches: No Runny Nose: No Sore Throat: Yes Cough (New or worsening chronic cough): Yes Shortness of breath: No Nausea or Vomiting: No Headache: No Abdominal Pain: No Diarrhea(3 or more loose stools in last 24 hours): No - Do you have any of the following Chronic lung disease: Asthma or emphysema or COPD: Yes Chronic Lung Disease Comment: asthma Cystic Fibrosis: No Diabetes: No High Blood Pressure: Yes Cardiovascular Disease: Yes Chronic Kidney Disease: No Chronic Liver Disease: No Chronic blood disorder like Sickle Cell Disease: No Weak immune system due to disease or medication: No Neurologic condition that limits movement: No Developmental delay - Moderate to Severe: No Recent (within past 2 weeks) or current : No Morbid Obesity (>100 pounds over ideal weight): No - Objective Temperature: 98.5 F Pulse Rate: 56 Respiratory Rate: 18 Blood Pressure: 136/59 O2 Sat by Pulse Oximetry: 94 Objective: Given above, testing performed: If Testing Performed: Test Specimen Type Sent to General - General Information source: Patient Notes: Patient presents to the [facility] for screening for the coronavirus. Patient does report recent exposure to someone who did test positive. Patient reports cough and sore throat for the past 6 days. Patient does have a history of asthma. - Related Data Allergies/Adverse Reactions: Iodinated Contrast Media Allergy (Mild, Verified 12/13/17 14:42) Hives acetaminophen [From Percocet] Allergy (Verified 12/13/17 14:42) celecoxib [From Celebrex] Allergy (Verified 12/13/17 14:42) oxycodone HCl [From Percocet] Allergy (Verified 12/13/17 14:42) pravastatin [Pravastatin] Allergy (Verified 12/13/17 14:42) Past Medical History - General Information source: Patient - Social History Smoking Status: Never Smoker Family History: Arthritis, CAD, COPD, CVA, Hyperlipidemia, Hypertension, Malignancy - Past Medical History Cardiac Medical History: Reports: Hx Congestive Heart Failure, Hx Heart Attack - 02/22, Hx Hypercholesterolemia, Hx Hypertension Denies: Hx Coronary Artery Disease - Cardiomyopathy Pulmonary Medical History: Reports: Hx Asthma - uses inhalers Denies: Hx Bronchitis, Hx COPD, Hx Pneumonia Neurological Medical History: Denies: Hx Cerebrovascular Accident, Hx Seizures Endocrine Medical History: Reports: Hx Hypothyroidism Renal/ Medical History: Denies: Hx Peritoneal Dialysis GI Medical History: Denies: Hx Hepatitis, Hx Hiatal Hernia, Hx Ulcer Musculoskeletal Medical History: Reports Hx Arthritis - hands, Reports Hx Musculoskeletal Deformity, Reports Hx Musculoskeletal Trauma Traumatic Medical History: Reports: Hx Fractures - Right elbow Infectious Medical History: Denies: Hx Hepatitis Past Surgical History: Reports: Hx Breast Surgery - Lumpectomy, Hx Genitourinary Surgery - Prolapsed bladder repair with lysis of adhesions in the pelvis at [place]., Hx Hysterectomy, Hx Orthopedic Surgery - [facility].. Denies: Hx Mastectomy, Hx Open Heart Surgery, Hx Pacemaker Physical Exam - Notes Notes: The patient was evaluated during the global Covid 19 pandemic, and that diagnosis was suspected/considered upon their initial presentation. Their evaluation, treatment and testing was consistent with current guidelines for patients who present with complaints or symptoms that may be related to Covid 19. Full physical exam could not be performed due to covid 19 isolation protocols. Constitutional: Nontoxic appearance, no acute distress Eyes: Nonicteric, extraocular movements intact, sclera clear ENT: Posterior pharynx clear without exudates, no tonsillar hypertrophy Cardiovascular: Heart rate and rhythm regular, no JVD Respiratory: Breath sounds clear bilaterally, nonlabored breathing, no use of accessory muscles, no tachypnea Gastrointestinal: Abdomen not distended Muculoskeletal: Moves all extremities well, normal gait Skin: Normal color Neuro: Awake alert oriented, normal speech Psych: Normal mood and affect Diagnostic Results Laboratory Results: Patient presents with upper respiratory symptoms worrisome for possible Covid 19. Patient does not have emergency worrying symptoms such as difficulty breathing, shortness of breath, chest pain, pressure, confusion or cyanosis. Patient appears suitable for discharge as vital signs are stable and patient is nontoxic in appearance. Good return precautions have been discussed with patient, patient verbalized understanding and is agreeable with discharge plan of care at this time. [facility] Discharge - Discharge Clinical Impression: Encounter for screening laboratory testing for COVID-19 virus Condition: Stable Disposition: Home; Selfcare
[2020-03-20 13:08] LABS: A TYPE INFLUENZA AG NEGATIVE (NEGATIVE); B INFLUENZA AG NEGATIVE (NEGATIVE)
== END ==
LOC: RDC 09:53
PROVIDERS: ATTEND Nurse Practitioner Family
DX: Z20.828 Contact with and (suspected) exposure to other viral communicable diseases (principal); R05 Cough; J02.9 Acute pharyngitis, unspecified; J45.909 Unspecified asthma, uncomplicated; I10 Essential (primary) hypertension; E03.9 Hypothyroidism, unspecified; I25.10 Atherosclerotic heart disease of native coronary artery without angina pectoris; M13.842 Other specified arthritis, left hand; M13.841 Other specified arthritis, right hand; Z88.6 Allergy status to analgesic agent; Z88.8 Allergy status to other drugs, medicaments and biological substances; Z91.041 Radiographic dye allergy status
CPT/HCPCS: 87070; 87880; 87804; U0003; C9803; 87635; 99201; 99211